=== PATIENT | male | born 1970 | race Caucasian/White ===

== ENCOUNTER 2022-08-14 10:03 | Inpatient (IN) | payer OTHER, SELFPAY ==
[2022-08-14] MEDS ORDERED: ONDANSETRON 4 MG/2 ML VIAL ONE ×2 (10:12→14:29)
[2022-08-14] MEDS ORDERED: MORPHINE 4 MG/ML SYR ONE (10:12)
[2022-08-14 10:37] LABS: Absolute Lymphocytes (CBC) 0.7 K/uL (0.7-4.9); Hematocrit 48.3 % (39.6-49.0); Lymphocytes % 2.4 % (15.3-44.8); MCV 83.3 fL (80-100); MPV 9.6 fL (7.6-11.3)
[2022-08-14 10:55] LABS: SARS-CoV-2 Antigen Rapid Res Negative (Negative)
[2022-08-14 11:08] LABS: Albumin 3.2 g/dL (3.4-5.0); Bilirubin Total 0.5 mg/dL (0.2-1.0); Potassium 5.6 mmol/L (3.5-5.1); Protein, Total 8.1 g/dL (6.4-8.2)
[2022-08-14 11:21] LABS: Blood Morphology Comment NOT SEEN (NOT SEEN); Dohle Bodies PRESENT; Platelet Estimate INCR; Platelets, Giant NOTED
[2022-08-14] MEDS ORDERED: NA CHLORIDE 0.9% 1,000 ML ONE (11:24)
--- NOTE | 2022-08-14 11:34 | RAD REPORT ---
EXAM DESCRIPTION: CT - Head Brain Wo Cont - 08/14/2022 11:25 am CLINICAL HISTORY: Headache, syncope COMPARISON: No comparisonsNo comparisons TECHNIQUE: Axial 5 mm thick images of the head were obtained without IV contrast. All CT scans are performed using dose optimization technique as appropriate and may include automated exposure control or mA/KV adjustment according to patient size. FINDINGS: No intracranial hemorrhage, mass, edema or shift of mid-line structures. No acute infarcti on changes seen. No abnormal extra-axial fluid collections. Ventricles are normal. Mastoid air cells are clear. Mild mucosal thickening seen in each maxillary sinus with small bilatera l air-fluid levels. There is left deviation the nasal septum. There is some minimal nodularity in the right nasal passage which could be a small polyp. No acute bony findings. IMPRESSION: No intracranial abnormality identifiable. Mild mucosal thickening and small air-fluid levels in each maxillary sinus. Findings could reflect a mild acute sinusitis and can be correlated with clinical presentation.
--- NOTE | 2022-08-14 11:40 | RAD REPORT ---
EXAM DESCRIPTION: CT - Abdomen Pelvis Wo Contrast - 08/14/2022 11:25 am CLINICAL HISTORY: abdominal pain COMPARISON: No comparisons TECHNIQUE: Axial [address] imaging of the abdomen and pelvis was performed without IV contrast. No IV contrast was given because of allergy, abnormal renal function, patient refusal or physician re quest. No oral contrast administered. All CT scans are performed using dose optimization technique as appropriate and may include automated exposure control or mA/KV adjustment according to patient size. FINDINGS: Minimal interstitial and patchy alveolar opacities are present in the left lung base. Righ t lung base is clear. No pleural effusions. No cardiomegaly or pericardial effusion. The liver, spleen and pancreas show no suspicious findings on non-contrast imaging. Gallbladder and b iliary tree are also without suspicious finding. No hydronephrosis or suspicious renal mass. No significant adrenal finding. Isodense renal masses an d pyelonephritis cannot be excluded in the absence of IV contrast. Mostly contracted urinary bladder shows no suspicious finding. Stomach is filled with fluid and air. No gastric wall thickening or mass. There is mild dilatation of the duodenum. Multiple dilated loops of jejunum are noted up to 4.4 cm in diameter. Dilation of smal l bowel continues to the jejunum and ileum junction. There is an 8 centimeter diameter left supraumbi lical hernia. The neck is 3 cm in diameter. The hernia contains a loop of small bowel. Distal loops o f small bowel are decompressed. Colon is decompressed. Herniated bowel loop shows mildly edematous wa lls. The herniated fat is edematous. No free air or pneumatosis. No abnormal free fluid collection. No mass or bulky lymphadenopathy. No suspicious bony findings. IMPRESSION: Small bowel obstruction secondary to a herniated loop of small bowel into an 8 centimete r diameter left supraumbilical hernia. Small bowel distal to the herniation decompressed along with decompressed colon. Herniated loop of sm all bowel at the jejunum and ileum junction shows mild edema. There is congestion and edema of the he rniated fat. There are patchy interstitial and alveolar opacities in the left lung base which could be a concurren t minimal infiltrate. Full assessment is limited is the absence of IV contrast.
[2022-08-14 11:46] LABS: Protime INR 0.98
[2022-08-14] MEDS ORDERED: NA CHLORIDE 0.9% 100 ML ONE (12:11)
[2022-08-14] MEDS ORDERED: PIPERACIL/TAZO 3.375 GM VIAL IV ONE (12:11)
--- NOTE | 2022-08-14 12:12 | ER ---
Nurse's Notes [facility] Name: Grady Magana Age: 52 yrs Sex: Male : 1970 Arrival Date: 08/14/2022 Time: 10:11 Bed 15 Private MD: Diagnosis: Incarcerated small bowel;Acute kidney failure, unspecified;Syncopal episode;Severe sepsis without septic shock;Hyponatremia Presentation: 08/14 10:00 Chief complaint: EMS states: patient fell in the kitchen and hit the back of his head, ko1 he was not conscious for 1-2 minutes. He has been having n/v over the past several days. Complains of abdominal pain, has an abdominal hernie. Coronavirus screen: At this time, the client does not indicate any symptoms associated with coronavirus-19. Ebola Screen: No symptoms or risks identified at this time. Initial Sepsis Screen: Does the patient meet any 2 criteria? No. Patient's initial sepsis screen is negative. Does the patient have a suspected source of infection? No. Patient's initial sepsis screen is negative. Risk Assessment: Do you want to hurt yourself or someone else? Patient reports no desire to harm self or others. Onset of symptoms was August 14, 2022. 10:00 Method Of Arrival: EMS: [facility] ko1 10:00 Acuity: LORY 2 ko1 Triage Assessment: 10:41 General: Appears in no apparent distress. uncomfortable, ill, Behavior is calm, ko1 cooperative, appropriate for age. Pain: Complains of pain in abdomen. EENT: No deficits noted. Neuro: Reports a syncopal episode. Cardiovascular: No deficits noted. Respiratory: No deficits noted. GI: No deficits noted. : No deficits noted. Derm: No deficits noted. Musculoskeletal: No deficits noted. Historical: - Allergies: 10:41 No Known Allergies; ko1 - Immunization history:: Adult Immunizations unknown. - Social history:: Smoking status: Patient denies any tobacco usage or history of. Screenin:36 [facility] ED Fall Risk Assessment (Adult) History of falling in the last 3 months, ko1 including since admission Yes- single mechanical fall (1 pt) Confusion or Disorientation No (0 pts) Intoxicated or Sedated No (0 pts) Impaired Gait No (0 pts) Mobility Assist Device Used No (0 pt) Altered Elimination No (0 pt) Score/Fall Risk Level 0 - 2 = Low Risk Oriented to surroundings, Maintained a safe environment, Educated pt \T\ family on fall prevention, incl call for assistance when getting out of bed, Assessed \T\ reinforced patient's understanding of fall precautions, Provided non-skid footwear, Hourly rounding (assess needs \T\ fall precautionary measures) done, Used ambulatory aids as needed (educated on \T\ assisted with), Used gait belt as appropriate. Abuse screen: Denies threats or abuse. Denies injuries from another. Nutritional screening: No deficits noted. Tuberculosis screening: No symptoms or risk factors identified. Assessment: 11:30 Reassessment: LIOR Yañez notified of critical lab values, K+, NA, Cl and creat. CODE ss SEPSIS called. 12:45 Reassessment: Bladder scanner device currently in use on 2nd floor, will perform 3 bladder scan once device is available. 12:58 :. eh3 Vital Signs: 10:36 BP 129 / 85; Pulse 68; Resp 16; Temp 97; Pulse Ox 100% ; Weight 102.06 kg; Height 6 ft. ko1 3 in. (190.50 cm); Pain 6/10; 11:00 BP 135 / 78; Pulse 70; Resp 16; Pulse Ox 99% ; ko1 11:15 BP 134 / 82; Pulse 72; Pulse Ox 99% ; ko1 11:45 BP 149 / 83; Pulse 69; Resp 16; Pulse Ox 100% on R/A; eh3 12:45 BP 139 / 80; Pulse 68; Resp 14; Pulse Ox 100% on R/A; eh3 10:36 Body Mass Index 28.12 (102.06 kg, 190.50 cm) ko1 ED Course: 10:11 Patient arrived in ED. ll1 10:11 Otilio Blancas NP is PHCP. pm1 10:11 Robbie Del Angel DO is Attending Physician. pm1 10:15 Fely Sinclair, PRAMOD is Primary Nurse. ko1 10:28 SARS RAPID Sent. ko1 10:28 Lactate w/ 2H reflex if indic. Sent. ko1 10:28 CBC with Diff Sent. ko1 10:28 CMP Sent. ko1 10:28 Lipase Sent. ko1 10:36 No provider procedures requiring assistance completed. Maintain EMS IV. Dressing ko1 intact. Good blood return noted. Site clean \T\ dry. Gauge \T\ site: 20g left AC. 10:36 Patient has correct armband on for positive identification. Bed in low position. Call ko1 light in reach. Side rails up X2. vehicle inspector on. Pulse ox on. NIBP on. Warm blanket given. 10:41 Triage completed. ko1 10:41 Arm band placed on right wrist. Patient placed in the treatment room, on cardiac ko1 monitor, on pulse oximetry, Patient notified of wait time Emesis basin given. 11:27 CT Head Brain wo Cont In Process Unspecified. EDMS 11:27 Abdomen In Process Unspecified. EDMS 12:03 Brad Wright MD is Hospitalizing Provider. pm1 12:58 Bladder scan completed. 27 mL. eh3 Administered Medications: 12:12 Discontinued: NS 0.9% 1000 ml IV at 100 ml/hr once pm1 10:15 Drug: Zofran (Ondansetron) 4 mg Route: IVP; Site: left antecubital; ko1 10:16 Drug: morphine 4 mg Route: IVP; Infused Over: 4 mins; Site: left antecubital; ko1 10:16 Drug: NS 0.9% 1000 ml Route: IV; Rate: 1000 ml; Site: left antecubital; ko1 11:20 Not Given (Physician Discretion): NS 0.9% 1000 ml IV at 125 ml/hr continuous pm1 11:34 Drug: NS 0.9% 1000 ml Route: IV; Rate: 100 ml/hr; Site: left antecubital; ko1 12:30 Drug: Zosyn (piperacillin-tazobactam) 3.375 grams Route: IVPB; Infused Over: 60 mins; eh3 Site: left antecubital; 12:30 Drug: NS 0.45 % 1000 ml Route: IV; Rate: 100 ml/hr; Site: left antecubital; eh3 Outcome: 12:12 Decision to Hospitalize by Provider. pm1 13:34 Patient left the ED. eh3 Signatures: Dispatcher [employer] EDMS Soledad Bustillos RN RN ss Otilio Blancas, LIOR LIGHTING ADVISER pm1 Guerrero Crowley RN RN 1 Leonila Borden RN RN eh3 Yahir, Fely, RN RN ko1
--- NOTE | 2022-08-14 12:12 | EDPHYS ---
Physician Documentation [facility] Name: Grady Magana Age: 52 yrs Sex: Male : 1970 Arrival Date: 08/14/2022 Time: 10:11 Bed 15 Private MD: ED Physician Robbie Del Angel HPI: 08/14 10:14 This 52 yrs old Male presents to ER via Unassigned with complaints of Abdominal pain. pm1 10:14 The patient presents with abdominal pain in the periumbilical area. Onset: The pm1 symptoms/episode began/occurred 4 day(s) ago. The symptoms do not radiate. Associated signs and symptoms: Pertinent positives: nausea and vomiting, Pertinent negatives: diarrhea, fever. The symptoms are described as achy, constant. Modifying factors: The symptoms are alleviated by nothing, the symptoms are aggravated by nothing. Severity of pain: in the emergency department the pain is actually worse. patient reports history of hernia to the area that he is hurting that has been present for many years. Patient reports the hernia got hard about 4 days ago. Patient with nausea and vomiting since. Patient with syncopal episode today when he got up. Patient fell backwards and hit his head. Positive for LOC. On EMS arrival noted systolic blood pressure 80s. Patient given IV fluids, approximately 600 mL infused patient with blood pressure within normal limits on arrival. The patient has not recently seen a physician. Historical: - Allergies: 10:41 No Known Allergies; ko1 - Immunization history:: Adult Immunizations unknown. - Social history:: Smoking status: Patient denies any tobacco usage or history of. ROS: 10:15 Eyes: Negative for injury, pain, redness, and discharge, ENT: Negative for injury, pm1 pain, and discharge, Neck: Negative for injury, pain, and swelling, Cardiovascular: Negative for chest pain, palpitations, and edema, Respiratory: Negative for shortness of breath, cough, wheezing, and pleuritic chest pain. 10:15 Back: Negative for injury and pain, MS/Extremity: Negative for injury and deformity, Skin: Negative for injury, rash. Positive for skin discoloration to abdomen onset yesterday Neuro: Negative for headache, weakness, numbness, tingling, and seizure. 10:15 Constitutional: Positive for poor PO intake, Negative for fever. 10:15 Abdomen/GI: Positive for abdominal pain, nausea and vomiting, of the mid upper abdomen, Negative for flatulence for 5 days. 10:15 All other systems are negative. Exam: 10:15 Head/Face: Normocephalic, atraumatic. pm1 10:15 Constitutional: The patient appears in no acute distress, alert, awake, comfortable, non-diaphoretic, non-toxic, well developed, well hydrated, well groomed, well nourished, in obvious pain. 10:15 Eyes: Exam is negative for acute changes, Periorbital structures: no acute changes, Extraocular movements: no acute changes, Conjunctiva: no acute changes, no injection. 10:15 ENT: Exam is negative for acute changes, Mouth: no acute changes, Lips: dry, Oral mucosa: normal, pink and intact, dry. Vital Signs: 10:36 BP 129 / 85; Pulse 68; Resp 16; Temp 97; Pulse Ox 100% ; Weight 102.06 kg; Height 6 ft. ko1 3 in. (190.50 cm); Pain 6/10; 11:00 BP 135 / 78; Pulse 70; Resp 16; Pulse Ox 99% ; ko1 11:15 BP 134 / 82; Pulse 72; Pulse Ox 99% ; ko1 11:45 BP 149 / 83; Pulse 69; Resp 16; Pulse Ox 100% on R/A; eh3 12:45 BP 139 / 80; Pulse 68; Resp 14; Pulse Ox 100% on R/A; eh3 10:36 Body Mass Index 28.12 (102.06 kg, 190.50 cm) ko1 MDM: 10:11 Patient medically screened. pm1 10:56 Differential diagnosis: bowel obstruction, Incarcerated hernia, cellulitis, abscess. pm1 11:51 ED course: Severe sepsis without shock: A) Infection source: Incarcerated hernia - pm1 small bowel. B) WBC 26, C) Lactate 2.4, Cr 7.79. 11:51 Counseling: I had a detailed discussion with the patient and/or guardian regarding: the pm1 historical points, exam findings, and any diagnostic results supporting the discharge/admit diagnosis, lab results, radiology results, the need for further work-up and treatment in the hospital. 11:58 Management of patient was discussed with the following: Hot Dip Tinning Supervisor: Dr Alvarado. Saw pm1 the patient in the ER and will take the patient to surgery soon. Admit to the hospitalist. anthony appropriate for treatment. 12:05 Consideration of Admission/Observation Patient was admitted to the ICU. pm1 12:07 Management of patient was discussed with the following: Hospitalist: Dr Wright. Saw pm1 patient in the ER and requested consultation with Dr Simmons. 12:12 Data reviewed: vital signs. pm1 12:13 Management of patient was discussed with the following: Hot Dip Tinning Supervisor: Iris HOLLAND. 1/2 NS pm1 at 100 per hour, repeat BMP q4h. Will see patient today. 12:36 Management of patient was discussed with the following: Derik LAURENT for hospitalist, pm1 discussed management plan from Dr Simmons - 1/2 LINDSEY at 100 ml/hr and BMP q4hr. 08/14 10:12 Order name: CBC with Diff; Complete Time: 11:23 pm1 08/14 10:12 Order name: CMP; Complete Time: 11:15 pm1 08/14 10:12 Order name: Lipase; Complete Time: 11:15 pm1 08/14 10:12 Order name: Lactate w/ 2H reflex if indic.; Complete Time: 11:15 pm1 08/14 10:13 Order name: SARS RAPID; Complete Time: 10:56 pm1 08/14 10:47 Order name: Manual Differential; Complete Time: 11:23 EDMS 08/14 10:18 Order name: CT Head Brain wo Cont; Complete Time: 11:46 pm1 08/14 11:20 Order name: Blood Culture Adult (2) pm1 08/14 11:20 Order name: Protime (+inr); Complete Time: 11:46 pm08/14 11:20 Order name: Ptt, Activated; Complete Time: 11:46 pm1 08/14 11:24 Order name: CMP pm1 08/14 13:25 Order name: BMP eh3 08/14 10:12 Order name: IV Saline Lock; Complete Time: 10:16 pm08/14 10:12 Order name: Labs collected and sent; Complete Time: 10:28 pm1 08/14 11:10 Order name: NPO; Complete Time: 11:13 pm1 08/14 11:20 Order name: EKG; Complete Time: 11:21 pm1 08/14 11:20 Order name: Cardiac monitoring; Complete Time: 11:34 pm1 08/14 11:20 Order name: EKG - Nurse/Tech; Complete Time: 12:35 pm1 08/14 11:20 Order name: O2 Per Protocol; Complete Time: 11:24 pm1 08/14 11:20 Order name: O2 Sat Monitoring; Complete Time: 11:24 pm1 08/14 11:23 Order name: Abdomen ; Complete Time: 11:46 EDMS 08/14 11:51 Order name: Labs - recollect needed: chemistry green top; Complete Time: 11:58 em1 08/14 12:41 Order name: Bladder Scanner; Complete Time: 13:00 ss EC:24 Rate is 69 beats/min. Rhythm is regular, Normal Sinus Rhythm with incomplete bundle pm1 branch block. QRS Vista is Normal. RI interval is normal. QRS interval is normal. QT interval is normal. No Q waves. T waves are Normal. No ST changes noted. Clinical impression: Normal sinus rhythm, incomplete bundle branch block, borderline ECG. Administered Medications: 12:12 Discontinued: NS 0.9% 1000 ml IV at 100 ml/hr once pm1 10:15 Drug: Zofran (Ondansetron) 4 mg Route: IVP; Site: left antecubital; ko1 10:16 Drug: morphine 4 mg Route: IVP; Infused Over: 4 mins; Site: left antecubital; ko1 10:16 Drug: NS 0.9% 1000 ml Route: IV; Rate: 1000 ml; Site: left antecubital; ko1 11:20 Not Given (Physician Discretion): NS 0.9% 1000 ml IV at 125 ml/hr continuous pm1 11:34 Drug: NS 0.9% 1000 ml Route: IV; Rate: 100 ml/hr; Site: left antecubital; ko1 12:30 Drug: Zosyn (piperacillin-tazobactam) 3.375 grams Route: IVPB; Infused Over: 60 mins; eh3 Site: left antecubital; 12:30 Drug: NS 0.45 % 1000 ml Route: IV; Rate: 100 ml/hr; Site: left antecubital; eh3 Disposition: 10:17 Co-signature as Attending Physician, Robbie Del Angel DO I reviewed the patient's care ms3 provided by Advanced Practice Provider \T\ agree w/ the diagnosis \T\ care plan. I personally saw the pt \T\ performed a substantive portion of the visit, incldng all aspects of the (History/Exam/Medical Decision Making). PA/LEDGER POSTER's history reviewed, patient interviewed, and examined. HPI: 52-year-old male presents via [place], EMS status post syncopal episode. Patient notes he has had vomiting with ventral hernia abdominal pain for the last few days. My personal exam of patient reveals: On exam patient is alert and oriented x4, no apparent distress, nontoxic-appearing. Heart rate and rhythm are regular without murmurs rubs or gallops. Lungs are clear to auscultation bilaterally. Abdomen is tender over ventral hernia, with overlying erythema. Hernia is not reducible. Disposition Summary: 08/14/22 12:12 Hospitalization Ordered Hospitalization Status: Inpatient Admission pm1 Provider: Brad Wright pm1 Location: Intensive Care Unit pm1 Problem: new pm1 Symptoms: have improved pm1 Bed/Room Type: Standard pm1 Room Assignment: pm1 Condition: Critical(08/14/22 12:17) pm1 Diagnosis - Incarcerated small bowel pm1 - Acute kidney failure, unspecified pm1 - Syncopal episode pm1 - Severe sepsis without septic shock pm1 - Hyponatremia pm1 Forms: - Medication Reconciliation Form pm1 - SBAR form pm1 Critical care time excluding procedures: 12:20 Critical care time: Bedside Care: 15 minutes, Consultation: 15 minutes, Family pm1 Intervention: 10 minutes. Total time: 40 minutes Signatures: Dispatcher [employer] EDMS Marques Alavrado em1 Soledad Bustillos RN RN ss Otilio Blancas NP LEDGER POSTER pm1 Robbie Del Angel, DO ms3 Leonila Borden, PRAMOD BENAVIDEZ eh3 Fely Sinclair, RN RN ko1 Corrections: (The following items were deleted from the chart) 10:27 10:21 Head Brain Wo Cont ordered. EDMS EDMS 10:31 10:15 Back: Negative for injury and pain, MS/Extremity: Negative for injury and pm1 deformity, Skin: Negative for injury, rash, and discoloration, Neuro: Negative for headache, weakness, numbness, tingling, and seizure, pm1 11:23 10:13 Abdomen Pelvis W Con+CT.RAD.BRZ ordered. EDMS EDMS 12: 12:12 Guarded pm1 pm1 12 12:12 Dehydration pm1 pm1
[2022-08-14] MEDS ORDERED: NACHLORIDE 0.45% 1,000 ML IV ONE (12:18)
[2022-08-14] MEDS ORDERED: VECURONIUM 10 MG/VIAL IV ONE ×2 (12:31→13:01)
[2022-08-14] MEDS ORDERED: NS 0.9% VIAL 10 ML ONE (12:31)
[2022-08-14] MEDS ORDERED: MIDAZOLAM HCL 2 MG/2 ML INJ ONE (12:31)
[2022-08-14] MEDS ORDERED: LIDOCAINE 2% MPF 5 ML VIAL ONE (12:31)
[2022-08-14] MEDS ORDERED: propofoL 200 MG/20 ML VIAL IV ONE (12:31)
[2022-08-14] MEDS ORDERED: FENTANYL CITR 250 MCG/5 ML ONE (12:31)
[2022-08-14] MEDS ORDERED: SUCCINYLCHOLINE 20 MG/ML (10 ML) IV ONE ×2 (13:01→13:50)
--- NOTE | 2022-08-14 13:13 | P.HP ---
Certification for Inpatient Patient admitted to: Inpatient With expected LOS: >2 Midnights Patient will require the following post-hospital care: None Practitioner: I am a practitioner with admitting privileges, knowledge of patient current condition, hospital course, and medical plan of care. Services: Services provided to patient in accordance with Admission requirements found in Title 42 Section 412.3 of the Code of Federal Regulations <Eldon Day - Last Filed: 08/14/22 19:47> Patient History Date of Service: 08/14/22 Primary Care Provider: None Reason for admission: Incarcerated bowel, hyponatremia History of Present Illness: This is a 52-year-old male with no prior medical history who presented to the emergency room with complaints of abdominal pain. Patient stated that his pain started 4 to 5 days ago with complaints of nausea, vomiting, dizziness, and headaches. Patient said that he has not been able to tolerate any of his meals. Pain is located in the umbilical area with no radiating symptoms. Patient also reported a fall after getting up to get some ice. No injuries were sustatined. Per EMS, patient was hypotensive with systolic blood pressures in the 80s. Patient was given 600 ml of IV fluids and blood pressure was normalized. Patient also said that he believes that he vomited feces at times. On physical exam, patient does present with a ventral hernia, he reports having a hernia for more than a year now. In the ER, patient had a white count of 26. Platelets of 439. Sodium 103, Potassium of 5.6. Creatinine of 7.79 and a lactic of 7.6. Patient will be admitted under the care of Dr. Wright. Surgery was consulted patient, will be going to the OR. Nephrology will be consulted for the management of the hyponatremia. <Eldon Day - Last Filed: 08/14/22 19:47> Date of Service: 08/15/22 <Brad Wright - Last Filed: 08/15/22 19:56> Allergies No Known Allergies Allergy (Unverified 08/14/22 12:57) Home Medications: NK [No Home Meds] 08/14/22 Review of Systems General: Weakness Respiratory: SOB with Excertion Gastrointestinal: Nausea, Vomiting, Abdominal Pain Neurological: Weakness <Eldon Day - Last Filed: 08/14/22 19:47> Physical Examination - Vital Signs Temperature: 97 F Blood Pressure: 129/85 Pulse: 69 Respirations: 18 Pulse Ox (%): 100 - Physical Exam General: Oriented x3, Moderate distress HEENT: Atraumatic, Normocephalic, PERRLA Neck: Supple, 2+ carotid pulse no bruit Respiratory: Diminished Cardiovascular: No edema, Normal pulses, Regular rate/rhythm Capillary refill: <2 Seconds Gastrointestinal: Hypoactive, Other (hernia), Tenderness Musculoskeletal: No clubbing, No swelling Integumentary: No rashes Neurological: Sensation intact Lymphatics: No axilla or inguinal lymphadenopathy - Studies Laboratory Data (last 24 hrs) 08/14/22 11:33: PT 10.8, INR 0.98, APTT 26.2 08/14/22 10:23: Sodium 103 L*, Potassium 5.6 H*, BUN 253 H, Creatinine 7.79 H*, Glucose 132 H, Total Bilirubin 0.5, AST 34, ALT 28, Alkaline Phosphatase 107, Lipase 596 H 08/14/22 10:23: WBC 26.70 H*, Hgb 17.2, Hct 48.3, Plt Count 439 H <Eldon Day - Last Filed: 08/14/22 19:47> - Studies Laboratory Data (last 24 hrs) 08/14/22 11:33: Sodium Cancelled, Potassium Cancelled, BUN Cancelled, Creatinine Cancelled, Glucose Cancelled, Total Bilirubin Cancelled, AST Cancelled, ALT Cancelled, Alkaline Phosphatase Cancelled <Brad Wright - Last Filed: 08/15/22 19:56> Assessment and Plan - Plan Assessment Severe sepsis without septic shock Incarcerated small bowel LYN Syncopal episode Hyponatremia Plan Nephrology consulted recommendation appreciated Surgery consulted Continue half-normal saline at 100 cc/hr BMP every 4 Trend lactic, second lactic was delayed because patient was in the emergency surgery Continue IV antibiotics Keep patient n.p.o. DVT PPX- SCDs Code status- Full code Discharge Plan: Home Plan to discharge in: Greater than 2 days - Advance Directives Does patient have a Living Will: No Does patient have a Durable POA for Healthcare: No - Code Status/Comfort Care Code Status Assessed: Yes (Full code) Critical Care: Yes Time Spent Managing Pts Care (In Minutes): 70 <Eldon Day - Last Filed: 08/14/22 19:47> Physician Review: Patient Assessed, Agree with Above Assessment and Plan <Brad Wright - Last Filed: 08/15/22 19:56>
[2022-08-14] MEDS ORDERED: Ringers Lactate 1,000 ML IV ONE (13:40)
--- NOTE | 2022-08-14 13:56 | P.BOP ---
Preoperative diagnosis: 8 cm incarcerated ventral supraumbilical hernia, peritonitis, renal inssuf. Postoperative diagnosis: peritonitis, small bowel obstruction Primary procedure: Emergent exploratory laparotomy, small bowel resection with anastomosis Secondary procedure: lysis of adhesion, repair of ventral strangulated hernia (8cm), Estimated blood loss: <50cc Specimen: small bowel Findings: see dicta Anesthesia: General Complications: None Transferred to: ICU Condition: Critical
[2022-08-14] MEDS ORDERED: NACHLORIDE 0.45% 1,000 ML IV SCH ×2 (14:00→22:47)
[2022-08-14 14:24] LABS: Potassium 5.8 mmol/L (3.5-5.1)
--- NOTE | 2022-08-14 14:25 | CON ---
Date of Consultation: 08/14/2022 Diagnosis: Abdominal pain, incarcerated, possible strangulated ventral hernia. History Of Present Illness: This is a case of a 52-year-old patient who has been 4 days having abdom inal pain, severe. He did not want to come to the ER until today, could not take it anymore and this was associated with nausea, vomiting, even a syncopal episode. EMS was called. Systolic blood pres sure of 80s, found to be acidotic. I asked the patient, he remembered what happened. He stated no L OC. Allergies: NONE. Surgeries: None. Family History: Noncontributory. Social History: No smoking. No ETOH. Review of Systems: Patient did have nausea, vomiting, there is questionable LOC, although he say no, but there is docume ntation of yes. Right now, he is oriented x3. He has this abdominal pain for 4 days just above the umbilical region. There is a bulging area redness on the skin. Physical Examination: General: Patient is awake, alert, oriented x3. HEENT: Pupils are equal and reactive. Anicteric. Neck: Supple. Chest: Clear. Abdomen: Distended and there is peritonitis. There is a mass effect in the ventral periumbilical re gion consistent with the findings of a possible strangulated umbilical ventral hernia. Rectal: Deferred. Extremities: Good capillary refill. Laboratory Data: Blood work shows WBC count of 26.7 with the hemoglobin of 17.2. INR is 0.98. Init ial blood work also shows sodium of 103, potassium 5.6, bicarb is 18, creatinine 7.79. Lipase 596. Glucose 132. Head CT interpreted by Dr. Ritter as no intracranial abnormalities. CAT scan of the a bdomen and pelvis interpreted by Dr. Ritter as small bowel obstruction with a hernia loop of small b owel into an 8 cm diameter ventral supraumbilical hernia. There is evidence of intestinal swelling, congestion. Assessment: It is somebody who came here with peritonitis, acidotic, leukocytosis, renal insufficien cy with an incarcerated, possible strangulated bowel. Happened several days ago to the point right n ow that he is all acidotic with electrolyte imbalance. At the same time, we have this emergency pres ent most likely a compromised bowel that may be contributing to all these symptoms. From the surgica l standpoint, we are going to take him emergently to the operating room for laparotomy, possible rese ction, possible ostomy with benefits, alternatives, and risks explained to him and the family member, which include, but not limited to, infection, bleeding, damage to adjacent structures, anesthesia co mplication, NV, and even . The OR was emergently called. SUKHI/LIZA Voice ID: [id number] Report ID: [id number]
[2022-08-14] MEDS ORDERED: KETOROLAC 30 MG/ML INJ ONE (14:28)
[2022-08-14] MEDS ORDERED: GLYCOPYRROLATE 0.2 MG/ML SYR ONE ×2 (14:28→14:36)
[2022-08-14] MEDS ORDERED: dexAMETHasone 10 MG/ML VIAL ONE (14:28)
[2022-08-14] MEDS ORDERED: NEOSTIGMINE 1 MG/ML -5 ML ONE (14:29)
[2022-08-14] MEDS ORDERED: SUGAMMADEX SODIUM 200 MG/2 ML VIAL IV ONE (15:05)
--- NOTE | 2022-08-14 15:44 | RAD REPORT ---
EXAM DESCRIPTION: RAD - Abdomen 1 View (KUB) - 08/14/2022 3:36 pm CLINICAL HISTORY: Placement of NGT/OGT. Post Insertion. Pain COMPARISON: No comparisons FINDINGS: Enteric tube is probably in the stomach but at the edge of the field of view.
[2022-08-14] MEDS ORDERED: FENTANYL CITR 100 MCG/2 ML ONE (15:51)
[2022-08-14] MEDS: PIPER TAZO 3.375 GM in NA CHLORIDE 0.9% 100 ML IV SCH (16:30)
--- NOTE | 2022-08-14 16:49 | OP ---
Date of Procedure: 08/14/2022 Surgeon: Sagar Alvarado MD Preoperative Diagnoses: Incarcerated strangulated ventral supraumbilical hernia, peritonitis, renal insufficiency, acidosis, leukocytosis, small bowel obstruction. Postoperative Diagnoses: Incarcerated strangulated ventral supraumbilical hernia, peritonitis, renal insufficiency, acidosis, leukocytosis, small bowel obstruction. Procedures: Emergent exploratory laparotomy, small bowel resection with anastomosis, repair of ventr al strangulated hernia about 8 cm, lysis of adhesions. Estimated Blood Loss: Less than 50 cc. Specimen: Small bowel hernia sac. Findings: The patient has strangulated small bowel causing a bowel obstruction and this bowel needs to be resected. Complications: None. Indication: This is the case of a 52-year-old patient, found in shock, hypovolemic, and syncope at h ome, when he was brought to the ER found to have a small bowel obstruction with a strangulated ventra l hernia. He was also found hyponatremic, hypovolemic, acidotic, renal insufficiency. The patient w as emergently resuscitated and then fully explained to him and the family the need for emergent lapar otomy possible bowel resection, possible ostomy with benefits, alternatives, and risks including, but not limited to infection, bleeding, damage to adjacent structures, anesthesia complication, recurren ce, HI and even . He also understands this may not relieve any symptoms. He might need more th an one surgical intervention. He understood, signed a consent. Procedure In Detail: The patient was brought to the operating room, placed in supine position. Anes thesia was done without complication. Abdominal area was prepped and draped in the usual sterile fas hion. At that moment, I proceeded to do a midline incision. Incision was carried down to fascia. W e went just above the hernia, so we can contain that small bowel present in that hernia. I did a for mal laparotomy, opened hernia sac, found to have a strangulated bowel with ischemia. We obtained pro ximal and distal control. At that moment, I proceeded then to transect the proximal and distal with an area that we believe is viable. I transected the mesenteric with the help of LigaSure. The ends of this small bowel seems to be viable, so we put them together, secured the end of anasto mosis with silk, made 2 enterotomies, put a KATHRYN 60 in between created anastomosis and then closed the enterotomies with the help of TA-60. The area was irrigated. The mesentery was closed with the hel p of 0 chromic. We ran the small bowel, seems to be now opening the area of collapse and seems to be an outstanding. There was good flow of the anastomosis in between with no bleeding. Profuse irriga tion of the abdomen was done. Transverse ascending and descending colon feels no masses in the liver , no mass in stomach. NG tube in place. Once again, we checked the area of anastomosis. The bowel seemed to be viable and functional with fluid passing through. At that moment, we irrigated the area once again and then proceeded to close the fascia with #2 nylon, irrigated subcutaneous tissue, clos ed the subcutaneous tissue with 3-0 chromic and then basically closed the skin with pura. Sponge count, instrument counts correct. The patient tolerated the procedure well. The patient was sent in critical condition to the ICU. This patient comes with a history of acidosis probably ga ngrenous for few days. Hopefully, they can resuscitate him and bring him and medically optimize him after this great insult. HM/MODL Voice ID: [id number] Report ID: [id number]
[2022-08-14 17:22] LABS: Magnesium 3.2 mg/dL (1.6-2.4); Potassium 5.2 mmol/L (3.5-5.1)
[2022-08-14] MEDS: MORPHINE 4 MG/ML SYR IV PRN ×2 (17:36→19:32)
[2022-08-14 17:39] LABS: Phosphorus 11.4 mg/dL (2.5-4.9)
[2022-08-14] MEDS ORDERED: D5W 1,000 ML IV SCH ×2 (18:05→22:49)
[2022-08-14] MEDS: ONDANSETRON 4 MG/2 ML VIAL IV PRN (19:32)
[2022-08-14] MEDS ORDERED: INFLUENZA VACCINE (for 6+ mo) 0.5 ML DOSE IMVAC ONE (20:00)
[2022-08-14 21:35] LABS: Albumin 2.7 g/dL (3.4-5.0); Bilirubin Total 0.6 mg/dL (0.2-1.0); Potassium 5.2 mmol/L (3.5-5.1); Protein, Total 6.6 g/dL (6.4-8.2)
[2022-08-14] MEDS ORDERED: DESMOPRESSIN 4 MCG/ML AMP ONE (21:56)
[2022-08-14] MEDS ORDERED: DESMOPRESSIN 4 MCG/ML AMP SQ ONE (22:00)
--- NOTE | 2022-08-14 22:29 | P.CNS ---
Date of Consult: 08/14/22 Reason for Consult: Hyponatremia/ LYN Requesting Physician: Brad Wright Primary Care Provider: None Chief Complaint: Incarcerated bowel, hyponatremia History of Present Illness: This is a 52-year-old male with no prior medical history who presented to the emergency room with complaints of abdominal pain. Patient stated that his pain started 4 to 5 days ago with complaints of nausea, vomiting, dizziness, and headaches. Patient said that he has not been able to tolerate any of his meals. Pain is located in the umbilical area with no radiating symptoms. Patient also reported a fall after getting up to get some ice. No injuries were sustatined. Per EMS, patient was hypotensive with systolic blood pressures in the 80s. Patient was given 600 ml of IV fluids and blood pressure was normalized. Patient also said that he believes that he vomited feces at times. On physical exam, patient does present with a ventral hernia, he reports having a hernia for more than a year now. In the ER, patient had a white count of 26. Platelets of 439. Sodium 103, Potassium of 5.6. Creatinine of 7.79 and a lactic of 7.6. Patient will be admitted under the care of Dr. Wright. Surgery was consulted patient, will be going to the OR. Nephrology will be consulted for the management of the hyponatremia. [facility] 10:14 This 52 yrs old Male presents to ER via Unassigned with complaints of Abdominal pain. pm1 10:14 The patient presents with abdominal pain in the periumbilical area. Onset: The pm1 symptoms/episode began/occurred 4 day(s) ago. The symptoms do not radiate. Associated signs and symptoms: Pertinent positives: nausea and vomiting, Pertinent negatives: diarrhea, fever. The symptoms are described as achy, constant. Modifying factors: The symptoms are alleviated by nothing, the symptoms are aggravated by nothing. Severity of pain: in the emergency department the pain is actually worse. patient reports history of hernia to the area that he is hurting that has been present for many years. Patient reports the hernia got hard about 4 days ago. Patient with nausea and vomiting since. Patient with syncopal episode today when he got up. Patient fell backwards and hit his head. Positive for LOC. On EMS arrival noted systolic blood pressure 80s. Patient given IV fluids, approximately 600 mL infused patient with blood pressure within normal limits on arrival. The patient has not recently seen a physician. Allergies No Known Allergies Allergy (Unverified 08/14/22 12:57) Home medications list reviewed: Yes Home Medications: NK [No Home Meds] 08/14/22 - Social History Place of Residence: Home Review of Systems 10-point ROS is otherwise unremarkable General: Weakness, Malaise Gastrointestinal: Abdominal Pain Neurological: Weakness Physical Examination Temp Pulse Resp BP Pulse Ox 97 F 70 16 135/75 96 08/14/22 20:04 08/14/22 21:00 08/14/22 21:00 08/14/22 21:00 08/14/22 21:00 General: Oriented x3, Cooperative HEENT: Atraumatic Neck: Supple Respiratory: Normal air movement Cardiovascular: No edema, Regular rate/rhythm Gastrointestinal: Tenderness Musculoskeletal: No clubbing, No contractures Integumentary: No rashes, No cyanosis Neurological: Normal speech Laboratory Data (last 24 hrs) 08/14/22 11:33: Sodium Cancelled, Potassium Cancelled, BUN Cancelled, Creatinine Cancelled, Glucose Cancelled, Total Bilirubin Cancelled, AST Cancelled, ALT Cancelled, Alkaline Phosphatase Cancelled 08/14/22 11:33: PT 10.8, INR 0.98, APTT 26.2 08/14/22 10:23: Sodium 103 L*, Potassium 5.6 H*, BUN 253 H, Creatinine 7.79 H*, Glucose 132 H, Total Bilirubin 0.5, AST 34, ALT 28, Alkaline Phosphatase 107, Lipase 596 H 08/14/22 10:23: WBC 26.70 H*, Hgb 17.2, Hct 48.3, Plt Count 439 H Imagings Data: [facility] EXAM DESCRIPTION: CT - Abdomen Pelvis Wo Contrast - 08/14/2022 11:25 am CLINICAL HISTORY: abdominal pain COMPARISON: No comparisons TECHNIQUE: Axial [address] imaging of the abdomen and pelvis was performed without IV contrast. No IV contrast was given because of allergy, abnormal renal function, patient refusal or physician request. No oral contrast administered. All CT scans are performed using dose optimization technique as appropriate and may include automated exposure control or mA/KV adjustment according to patient size. FINDINGS: Minimal interstitial and patchy alveolar opacities are present in the left lung base. Right lung base is clear. No pleural effusions. No cardiomegaly or pericardial effusion. The liver, spleen and pancreas show no suspicious findings on non-contrast imaging. Gallbladder and biliary tree are also without suspicious finding. No hydronephrosis or suspicious renal mass. No significant adrenal finding. Isodense renal masses and pyelonephritis cannot be excluded in the absence of IV contrast. Mostly contracted urinary bladder shows no suspicious finding. Stomach is filled with fluid and air. No gastric wall thickening or mass. There is mild dilatation of the duodenum. Multiple dilated loops of jejunum are noted up to 4.4 cm in diameter. Dilation of small bowel continues to the jejunum and ileum junction. There is an 8 centimeter diameter left supraumbilical hernia. The neck is 3 cm in diameter. The hernia contains a loop of small bowel. Distal loops of small bowel are decompressed. Colon is decompressed. Herniated bowel loop shows mildly edematous martel. The herniated fat is edematous. No free air or pneumatosis. No abnormal free fluid collection. No mass or bulky lymphadenopathy. No suspicious bony findings. IMPRESSION: Small bowel obstruction secondary to a herniated loop of small bowel into an 8 centimeter diameter left supraumbilical hernia. Small bowel distal to the herniation decompressed along with decompressed colon. Herniated loop of small bowel at the jejunum and ileum junction shows mild edema. There is congestion and edema of the herniated fat. There are patchy interstitial and alveolar opacities in the left lung base which could be a concurrent minimal infiltrate. Conclusions/Impression: LYN in the setting of Sepsis/ Hypovolemia -No NSAIDs -Continue IVF Hypovolemic Hyponatremia of unclear duration -IVF as ordered -BMP q4h -DDAVP X1 dose Hyperkalemia -NPO -Continue IVF Hypocalcemia HyperPO4 -NPO -Replete calcium prn Hypoalbuminemia in the setting of moderate malnutrition Debility/ Weakness -Advance nutrition as indicated Sepsis/ Septic Shock Incarcerated Hernia sp bowel resection -Continue abx -Follow up with surgery Case reviewed with Dr. Wright Thank you kindly for the consultation Critical Care: Yes (>30min)
[2022-08-15] MEDS: D5W 1,000 ML IV SCH ×2 (00:22→13:53)
[2022-08-15] MEDS: PIPER TAZO 3.375 GM in NA CHLORIDE 0.9% 100 ML IV SCH ×3 (00:22→17:24)
[2022-08-15 01:38] LABS: Potassium 4.9 mmol/L (3.5-5.1)
[2022-08-15] MEDS: MORPHINE 4 MG/ML SYR IV PRN ×2 (04:32→20:02)
[2022-08-15 05:16] LABS: Absolute Lymphocytes (CBC) 0.1 K/uL (0.7-4.9); Hematocrit 42.9 % (39.6-49.0); Lymphocytes % 0.6 % (15.3-44.8); MCV 84.3 fL (80-100); MPV 9.5 fL (7.6-11.3)
[2022-08-15 05:34] LABS: Uric Acid 14.7 mg/dL (3.5-7.2)
[2022-08-15 05:36] LABS: Specific Gravity 1.014 (1.005-1.030); Urine Bacteria <20 /HPF (<20); Urine Bilirubin NEGATIVE (Negative); Urine Blood 1+ (Negative); Urine Clarity Turbid (Clear); Urine Color Light-Yellow (Yellow); Urine Glucose 1+ (Negative); Urine Protein TRACE (Negative); Urine Urobilinogen Normal (Normal)
[2022-08-15 05:37] LABS: Calcium Oxalate Crystals- Ur Few /HPF (None Seen); Urine Mucus Slight /HPF (None Seen); Urine WBC Clump Occasional /HPF (None Seen)
[2022-08-15 05:40] LABS: UR SODIUM 24 mmol/L (27-287)
[2022-08-15 05:41] LABS: UR CL RANDOM < 12 mmol/L (25-40)
[2022-08-15 06:12] LABS: Potassium 4.6 mmol/L (3.5-5.1)
[2022-08-15 07:06] LABS: Hepatitis B Core Ab, Total Nonreactive (Nonreactive); Hepatitis B surface AG Interp. Nonreactive (Nonreactive); Hepatitis C Virus Ab Nonreactive (Nonreactive)
[2022-08-15 07:07] LABS: Hepatitis B Surface Ab - Quant < 3.10 mIU/mL (<8.0)
[2022-08-15] MEDS: MUPIROCIN 2% OINT 22GM TUBE TOP SCH ×2 (08:28→22:38)
[2022-08-15 09:11] LABS: Potassium 4.4 mmol/L (3.5-5.1)
[2022-08-15 12:35] LABS: Potassium 4.3 mmol/L (3.5-5.1)
--- NOTE | 2022-08-15 16:31 | PN ---
Date of Progress Note: 08/15/2022 Subjective: Status post emergent laparotomy with bowel resection, repair of a strangulated hernia, a cidosis, renal insufficiency, hypovolemia. The patient is doing better. Objective: General: He is awake and alert, no distress. Oriented x3. Chest: Clear. Abdomen: Intact surgical site. Extremities: Good capillary refill. Laboratory Data: Blood work reviewed showing sodium was 114, coming up from 106. Potassium is comin g down to 4.4 from a lot higher than that. Also, anion gap is 21.4, bicarb is 19, glucose 130. CBC: Once again, WBC count from 26 to 22. Plan: Continue current care, bowel rest, ambulation if possible. Continue with medical service for electrolyte imbalance, incentive spirometry. Continue the antibiotics. HM/MODL Voice ID: [id number] Report ID: [id number]
[2022-08-15] MEDS: D5 0.2 NS 1,000 ML IV SCH (18:39)
--- NOTE | 2022-08-15 19:56 | P.PN ---
Subjective Date of Service: 08/15/22 Primary Care Provider: None Chief Complaint: Incarcerated bowel, hyponatremia POD # 1 from emergent laparotomy with bowel resection, repair of a strangulated hernia. He reports that his abdominal pain is well-controlled with his current pain regimen. He denies any nausea, vomiting. He has not passed any flatus or stool since the surgery. Review of Systems 10-point ROS is otherwise unremarkable Gastrointestinal: Abdominal Pain Physical Examination - Vital Signs Temperature: 97.8 F Blood Pressure: 118/63 Pulse: 79 Respirations: 19 Pulse Ox (%): 97 - Physical Exam General: Alert, In no apparent distress, Oriented x3 HEENT: Atraumatic, Other (NG tube in place), EOMI, Sclerae nonicteric Respiratory: Clear to auscultation bilaterally, Normal air movement Cardiovascular: No edema, Regular rate/rhythm, Normal S1 S2, No gallops, No rubs, No murmurs Gastrointestinal: Hypoactive, Other (incision is covered in surgical dressing), Tenderness (generalized) Musculoskeletal: No clubbing Integumentary: No rashes Neurological: Normal speech, Normal affect - Studies Laboratory Data (last 24 hrs) 08/14/22 11:33: Sodium Cancelled, Potassium Cancelled, BUN Cancelled, Creatinine Cancelled, Glucose Cancelled, Total Bilirubin Cancelled, AST Cancelled, ALT Cancelled, Alkaline Phosphatase Cancelled Assessment And Plan - Plan # Acute Small Bowel Obstruction and Bowel Incarceration through Left Supraumbilical Hernia - General Surgery consulted and spoke with Dr. Alvarado - recommendations appreciated - S/P emergent laparotomy with bowel resection, repair of a strangulated hernia (08/14/2022) - CT abodmen/pelvis = "small bowel obstruction secondary to a herniated loop of small bowel into an 8 centimeter diameter left supraumbilical hernia." - NG tube in place - NPO - PRN pain control # Severe Hyponatremia - Sodium level: 103 -> 106 -> 110 -> 113 -> 113 -> 114 - No need for hypertonic saline as his mentation is completely intact - Consulted Nephrology and spoke with Dr. Simmons - cesilia appreciated - Caution not to correct too fast to avoid central pontine myelinolysis - IV fluids per Neph - Ordered TSH # KDIGO Stage III Acute Kidney Injury with Hyperkalemia # Microscopic Hematuria - Consulted Nephrology and spoke with Dr. Aglieco - recommendations appreciated - Creatinine = 7.79 -> 7.39 -> 6.56 -> 6.35 -> 6.09 -> 5.91 (baseline creatinine unknown) - Urinalysis = 1+ glucose, 1+ blood, 250 leukocyte esterase, 5-10 RBCs, > 50 WBCs, trace protein - IV fluids per Nephrology - Monitor creatinine and urine output - Renally dose medications # SIRS Criteria with Lactic Acidosis likely due to SBO with Strangulated Hernia - Severe Sepsis was documented in H&P, but should be removed - thus far, there is no current evidence of infection - Will continue empiric piperacillin-tazobactam per Surgery Brad Wright M.D.
[2022-08-15] MEDS: ONDANSETRON 4 MG/2 ML VIAL IV PRN (20:02)
[2022-08-15 21:36] LABS: Potassium 3.8 mmol/L (3.5-5.1)
--- NOTE | 2022-08-15 22:11 | P.PN ---
Date of Service: 08/15/22 Vital Signs Temp Pulse Resp BP Pulse Ox 97.8 F 74 15 120/69 98 08/15/22 19:57 08/15/22 20:00 08/15/22 20:00 08/15/22 20:00 08/15/22 20:00 Medications Piperacillin Sod/Tazobactam (Sod 3.375 gm/ Sodium Chloride) 100 mls @ 25 mls/hr IV Q8HR [facility]; Protocol Last Admin: 08/15/22 17:24 Dose: 100 mls Sodium Chloride (Sodium Chloride 0.45%) 1,000 mls @ 125 mls/hr IV .Q8H ANITHA Dextrose/Sodium Chloride (Dextrose 5% 0.2% Sodium Chloride) 1,000 mls @ 150 mls/hr IV .Q6H40M [facility] Last Admin: 08/15/22 18:39 Dose: 1,000 mls Morphine Sulfate (Morphine 4 Mg/Ml Syr) 4 mg IV Q2H PRN PRN Reason: Pain scale 5-7 (Moderate) Last Admin: 08/15/22 20:02 Dose: 4 mg Mupirocin (Mupirocin 2% Oint 22gm Tube) 1 appl TOP BID [facility] Stop: 08/20/22 09:01 Last Admin: 08/15/22 08:28 Dose: 1 applic Ondansetron HCl (Ondansetron 4 Mg/2 Ml Vial) 4 mg IV Q6HP PRN PRN Reason: NAUSEA / VOMITING Last Admin: 08/15/22 20:02 Dose: 4 mg Sodium Chloride (Flush Normal Saline 10 Ml) 10 ml IV BID [facility] Last Admin: 08/15/22 22:00 Dose: 10 ml Microbiology Results 08/14/22 11:53 Blood - Blood Aerobic Blood Culture - Preliminary No growth in 24 hours. 08/14/22 11:53 Blood - Blood Anaerobic Blood Culture - Preliminary No growth in 24 hours. 08/14/22 11:41 Blood - Blood Aerobic Blood Culture - Preliminary No growth in 24 hours. 08/14/22 11:41 Blood - Blood Anaerobic Blood Culture - Preliminary No growth in 24 hours. Assessment/ Plan: Nephrology No dyspnea No chest pain Abdominal pain No acute events overnight Vitals, medications, blood work and imaging reviewed in the chart. General: Oriented x3, Cooperative HEENT: Atraumatic. NGT Neck: Supple Respiratory: Normal air movement Cardiovascular: No edema, Regular rate/rhythm Gastrointestinal: Tenderness Musculoskeletal: No clubbing, No contractures Integumentary: No rashes, No cyanosis Neurological: Normal speech Laboratory Data (last 24 hrs) 08/14/22 11:33: Sodium Cancelled, Potassium Cancelled, BUN Cancelled, Creatinine Cancelled, Glucose Cancelled, Total Bilirubin Cancelled, AST Cancelled, ALT Cancelled, Alkaline Phosphatase Cancelled 08/14/22 11:33: PT 10.8, INR 0.98, APTT 26.2 08/14/22 10:23: Sodium 103 L*, Potassium 5.6 H*, BUN 253 H, Creatinine 7.79 H*, Glucose 132 H, Total Bilirubin 0.5, AST 34, ALT 28, Alkaline Phosphatase 107, Lipase 596 H 08/14/22 10:23: WBC 26.70 H*, Hgb 17.2, Hct 48.3, Plt Count 439 H Imagings Data: EXAM DESCRIPTION: CT - Abdomen Pelvis Wo Contrast - 08/14/2022 11:25 am CLINICAL HISTORY: abdominal pain COMPARISON: No comparisons TECHNIQUE: Axial [address] imaging of the abdomen and pelvis was performed without IV contrast. No IV contrast was given because of allergy, abnormal renal function, patient refusal or physician request. No oral contrast administered. All CT scans are performed using dose optimization technique as appropriate and may include automated exposure control or mA/KV adjustment according to patient size. FINDINGS: Minimal interstitial and patchy alveolar opacities are present in the left lung base. Right lung base is clear. No pleural effusions. No cardiomegaly or pericardial effusion. The liver, spleen and pancreas show no suspicious findings on non-contrast imaging. Gallbladder and biliary tree are also without suspicious finding. No hydronephrosis or suspicious renal mass. No significant adrenal finding. Isodense renal masses and pyelonephritis cannot be excluded in the absence of IV contrast. Mostly contracted urinary bladder shows no suspicious finding. Stomach is filled with fluid and air. No gastric wall thickening or mass. There is mild dilatation of the duodenum. Multiple dilated loops of jejunum are noted up to 4.4 cm in diameter. Dilation of small bowel continues to the jejunum and ileum junction. There is an 8 centimeter diameter left supraumbilical hernia. The neck is 3 cm in diameter. The hernia contains a loop of small bowel. Distal loops of small bowel are decompressed. Colon is decompressed. Herniated bowel loop shows mildly edematous martel. The herniated fat is edematous. No free air or pneumatosis. No abnormal free fluid collection. No mass or bulky lymphadenopathy. No suspicious bony findings. IMPRESSION: Small bowel obstruction secondary to a herniated loop of small bowel into an 8 centimeter diameter left supraumbilical hernia. Small bowel distal to the herniation decompressed along with decompressed colon. Herniated loop of small bowel at the jejunum and ileum junction shows mild edema. There is congestion and edema of the herniated fat. There are patchy interstitial and alveolar opacities in the left lung base which could be a concurrent minimal infiltrate. Conclusions/Impression: LYN in the setting of Sepsis/ Hypovolemia -No NSAIDs -Increase IVF Hypovolemic Hyponatremia of unclear duration -IVF adjusted -BMP q4h -DDAVP prn Hyperkalemia -NPO -Continue IVF Hypocalcemia HyperPO4 -NPO -Replete calcium prn Hypoalbuminemia in the setting of moderate malnutrition Debility/ Weakness -NPO -Advance nutrition as indicated Sepsis/ Septic Shock Incarcerated Hernia sp bowel resection -Continue abx -Follow up with surgery Case reviewed with Dr. Wright >30min patient care
[2022-08-16 01:01] LABS: Potassium 3.8 mmol/L (3.5-5.1)
[2022-08-16] MEDS: PIPER TAZO 3.375 GM in NA CHLORIDE 0.9% 100 ML IV SCH ×3 (01:09→19:58)
[2022-08-16] MEDS: D5 0.2 NS 1,000 ML IV SCH ×2 (01:40→07:20)
[2022-08-16 04:38] LABS: Absolute Lymphocytes (CBC) 0.5 K/uL (0.7-4.9); Hematocrit 37.8 % (39.6-49.0); Lymphocytes % 2.8 % (15.3-44.8); MCV 85.1 fL (80-100); MPV 9.6 fL (7.6-11.3); RBC Red Blood Cell Count 4.45 M/uL (4.33-5.43)
[2022-08-16 04:40] LABS: Calcium Oxalate Crystals- Ur Few /HPF (None Seen); Specific Gravity 1.015 (1.005-1.030); Urine Bacteria <20 /HPF (<20); Urine Bilirubin NEGATIVE (Negative); Urine Blood Negative (Negative); Urine Clarity Turbid (Clear); Urine Color Yellow (Yellow); Urine Glucose 1+ (Negative); Urine Mucus Slight /HPF (None Seen); Urine Protein TRACE (Negative); Urine RBC <5 /HPF (None Seen); Urine Urobilinogen Normal (Normal)
[2022-08-16 04:43] LABS: UR CL RANDOM < 12 mmol/L (25-40); UR SODIUM < 15 mmol/L (27-287)
[2022-08-16 04:57] LABS: Thyroid Stimulating Hormone 0.189 uIU/mL (0.358-3.740); Uric Acid 14.7 mg/dL (3.5-7.2)
[2022-08-16 05:07] LABS: Potassium 3.8 mmol/L (3.5-5.1)
[2022-08-16] MEDS: MUPIROCIN 2% OINT 22GM TUBE TOP SCH ×2 (07:50→19:55)
[2022-08-16] MEDS: NACHLORIDE 0.45% 1,000 ML IV SCH ×2 (08:49→14:41)
[2022-08-16 09:36] LABS: Potassium 3.9 mmol/L (3.5-5.1)
--- NOTE | 2022-08-16 12:38 | P.PN ---
Subjective Date of Service: 08/16/22 Primary Care Provider: None Chief Complaint: Incarcerated bowel, hyponatremia POD # 2 from emergent laparotomy with bowel resection, repair of a strangulated hernia. He reports that his pain is well-controlled with his current pain regimen. He denies any nausea, vomiting. He has not passed any flatus or stool since the surgery. His sodium remains low, but is stable. Appreciate Nephrology recs. Review of Systems 10-point ROS is otherwise unremarkable Gastrointestinal: Abdominal Pain Physical Examination - Vital Signs Temperature: 96.8 F Blood Pressure: 142/66 Pulse: 73 Respirations: 21 Pulse Ox (%): 97 Assessment And Plan - Plan - Physical Exam General: Alert, In no apparent distress, Oriented x3 HEENT: Atraumatic, Other (NG tube in place, with green/brown output), EOMI, Sclerae nonicteric Respiratory: Clear to auscultation bilaterally, Normal air movement Cardiovascular: No edema, Regular rate/rhythm, Normal S1 S2, No gallops, No rubs, No murmurs Gastrointestinal: Hypoactive, Other (incision is covered in surgical dressing), Tenderness (generalized) Musculoskeletal: No clubbing Integumentary: No rashes Neurological: Normal speech, Normal affect # Acute Small Bowel Obstruction and Bowel Incarceration through Left Supraumbilical Hernia - General Surgery consulted and spoke with Dr. Alvarado - recommendations appreciated - S/P emergent laparotomy with bowel resection, repair of a strangulated hernia (08/14/2022) - CT abodmen/pelvis = "small bowel obstruction secondary to a herniated loop of small bowel into an 8 centimeter diameter left supraumbilical hernia." - NG tube in place - NPO - diet orders per General Surgery - PRN pain control # Severe Hyponatremia - Sodium level: 103 -> 106 -> 110 -> 113 -> 114 -> 115 -> 116 -> 114 -> 116 --> 113 - No need for hypertonic saline as his mentation is completely intact - Consulted Nephrology and spoke with Dr. Simmons - cesilia appreciated - Caution not to correct too quickly to avoid central pontine myelinolysis - IV fluids per Neph # KDIGO Stage III Acute Kidney Injury with Hyperkalemia # Microscopic Hematuria - Consulted Nephrology and spoke with Dr. Simmons - cesilia appreciated - Creatinine = 7.79 -> 7.39 -> 6.56 -> 6.35 -> 6.09 -> 5.91 -> 6.03 -> 6.06 -> 6.25 -> 6.53 (baseline creatinine unknown) - Urinalysis = 1+ glucose, 1+ blood, 250 leukocyte esterase, 5-10 RBCs, > 50 WBCs, trace protein - IV fluids per Nephrology - Strict I/O - Monitor creatinine and urine output - Renally dose medications # SIRS Criteria with Lactic Acidosis likely due to SBO with Strangulated Hernia - Severe Sepsis was documented in H&P, but should be removed - thus far, there is no current evidence of infection - Will continue empiric piperacillin-tazobactam per Surgery # Mild Hyperthyroidism - TSH 0.189, Free T4 1.50 - Hold off on methimazole as this is borderline, and he is acutely ill - likely not due to overt hyperthyroidism - Monitor TSH/T4 levels Brad Wright M.D.
[2022-08-16] MEDS: MORPHINE 4 MG/ML SYR IV PRN ×3 (12:44→20:00)
[2022-08-16] MEDS ORDERED: SODIUM CHLORIDE 0.9% 10ML INJ IV PRN (14:13)
[2022-08-16] MEDS: PANTOPRAZOLE 40 MG INJ IVP SCH ×2 (14:41→19:58)
[2022-08-16] MEDS: NA CHLORIDE 0.9% 1,000 ML IV SCH (18:16)
--- NOTE | 2022-08-16 18:38 | PN ---
Date of Progress Note: 08/16/2022 Diagnosis: Strangulated ventral hernia with shock, hypovolemia, hyponatremia, renal insufficiency, s tatus post laparotomy emergently with bowel resection and anastomosis. Subjective: The patient is doing better. He is cooperating. He is feeling better now. No shortnes s of breath. No chest pain. No fever. Objective: Chest: Clear. Abdomen: Soft and depressible. Bowel sounds still negative. Midline incision is intact. Extremiti es: Good capillary refill. Laboratory Data: Blood work is improving. WBC count came down from 26 to 16 with hemoglobin of 13.1 . INR 0.98 with sodium 115 and chloride 74. Creatinine is still high, and 6.69. Glucose is 94. Plan: Continue bowel rest. Continue NG tube. We encouraged ambulation. Continue medical care for electrolytes. He has not passed any gas. He had a bowel movement, so we are going to hold diet unti l we have one of those and his bowel regain function. HM/MODL Voice ID: [id number] Report ID: [id number]
--- NOTE | 2022-08-16 21:10 | P.PN ---
Date of Service: 08/16/22 Vital Signs Temp Pulse Resp BP Pulse Ox 96.9 F 79 16 121/72 97 08/16/22 16:00 08/16/22 16:00 08/16/22 16:00 08/16/22 16:00 08/16/22 16:00 Medications Piperacillin Sod/Tazobactam (Sod 3.375 gm/ Sodium Chloride) 100 mls @ 25 mls/hr IV Q12HR [facility]; Protocol Last Admin: 08/16/22 19:58 Dose: 100 mls Sodium Chloride (Ns 1000 Ml Ivbag) 1,000 mls @ 150 mls/hr IV .Q6H40M [facility] Last Admin: 08/16/22 18:16 Dose: 1,000 mls Morphine Sulfate (Morphine 4 Mg/Ml Syr) 4 mg IV Q2H PRN PRN Reason: Pain scale 8-10 (Severe) Last Admin: 08/16/22 20:00 Dose: 4 mg Mupirocin (Mupirocin 2% Oint 22gm Tube) 1 appl TOP BID [facility] Stop: 08/20/22 09:01 Last Admin: 08/16/22 19:55 Dose: 1 applic Ondansetron HCl (Ondansetron 4 Mg/2 Ml Vial) 4 mg IV Q6HP PRN PRN Reason: NAUSEA / VOMITING Last Admin: 08/15/22 20:02 Dose: 4 mg Pantoprazole Sodium (Pantoprazole 40 Mg Inj) 40 mg IVP Q12HR [facility]; Protocol Last Admin: 08/16/22 19:58 Dose: 40 mg Sodium Chloride (Flush Normal Saline 10 Ml) 10 ml IV BID [facility] Last Admin: 08/16/22 19:58 Dose: 10 ml Sodium Chloride (Sodium Chloride 0.9% 10ml Inj) 10 ml IV UD PRN PRN Reason: Diluant Microbiology Results 08/14/22 11:53 Blood - Blood Aerobic Blood Culture - Preliminary No growth in 24 hours. 08/14/22 11:53 Blood - Blood Anaerobic Blood Culture - Preliminary No growth in 24 hours. 08/14/22 11:41 Blood - Blood Aerobic Blood Culture - Preliminary No growth in 24 hours. 08/14/22 11:41 Blood - Blood Anaerobic Blood Culture - Preliminary No growth in 24 hours. Assessment/ Plan: Nephrology Mild dyspnea No chest pain Nurse reports decreasing urine output No acute events overnight Vitals, medications, blood work and imaging reviewed in the chart. General: Oriented x3, Cooperative HEENT: Atraumatic. NGT Neck: Supple Respiratory: Normal air movement Cardiovascular: No edema, Regular rate/rhythm Gastrointestinal: Tenderness Musculoskeletal: No clubbing, No contractures Integumentary: No rashes, No cyanosis Neurological: Normal speech Laboratory Data (last 24 hrs) 08/14/22 11:33: Sodium Cancelled, Potassium Cancelled, BUN Cancelled, Creatinine Cancelled, Glucose Cancelled, Total Bilirubin Cancelled, AST Cancelled, ALT Cancelled, Alkaline Phosphatase Cancelled 08/14/22 11:33: PT 10.8, INR 0.98, APTT 26.2 08/14/22 10:23: Sodium 103 L*, Potassium 5.6 H*, BUN 253 H, Creatinine 7.79 H*, Glucose 132 H, Total Bilirubin 0.5, AST 34, ALT 28, Alkaline Phosphatase 107, Lipase 596 H 08/14/22 10:23: WBC 26.70 H*, Hgb 17.2, Hct 48.3, Plt Count 439 H Imagings Data: EXAM DESCRIPTION: CT - Abdomen Pelvis Wo Contrast - 08/14/2022 11:25 am CLINICAL HISTORY: abdominal pain COMPARISON: No comparisons TECHNIQUE: Axial [address] imaging of the abdomen and pelvis was performed without IV contrast. No IV contrast was given because of allergy, abnormal renal function, patient refusal or physician request. No oral contrast administered. All CT scans are performed using dose optimization technique as appropriate and may include automated exposure control or mA/KV adjustment according to patient size. FINDINGS: Minimal interstitial and patchy alveolar opacities are present in the left lung base. Right lung base is clear. No pleural effusions. No cardiomegaly or pericardial effusion. The liver, spleen and pancreas show no suspicious findings on non-contrast imaging. Gallbladder and biliary tree are also without suspicious finding. No hydronephrosis or suspicious renal mass. No significant adrenal finding. Isodense renal masses and pyelonephritis cannot be excluded in the absence of IV contrast. Mostly contracted urinary bladder shows no suspicious finding. Stomach is filled with fluid and air. No gastric wall thickening or mass. There is mild dilatation of the duodenum. Multiple dilated loops of jejunum are noted up to 4.4 cm in diameter. Dilation of small bowel continues to the jejunum and ileum junction. There is an 8 centimeter diameter left supraumbilical hernia. The neck is 3 cm in diameter. The hernia contains a loop of small bowel. Distal loops of small bowel are decompressed. Colon is decompressed. Herniated bowel loop shows mildly edematous martel. The herniated fat is edematous. No free air or pneumatosis. No abnormal free fluid collection. No mass or bulky lymphadenopathy. No suspicious bony findings. IMPRESSION: Small bowel obstruction secondary to a herniated loop of small bowel into an 8 centimeter diameter left supraumbilical hernia. Small bowel distal to the herniation decompressed along with decompressed colon. Herniated loop of small bowel at the jejunum and ileum junction shows mild edema. There is congestion and edema of the herniated fat. There are patchy interstitial and alveolar opacities in the left lung base which could be a concurrent minimal infiltrate. Conclusions/Impression: LYN in the setting of Sepsis/ Hypovolemia complicated by ATN -No NSAIDs -IVF adjusted -May need to consider dialysis if persistent LYN with worsening oliguria Hypovolemic Hyponatremia of unclear duration -IVF adjusted -BMP q4h -DDAVP prn Hyperkalemia -NPO -Continue IVF Hypocalcemia HyperPO4 -NPO -Replete calcium prn Hypoalbuminemia in the setting of moderate malnutrition Debility/ Weakness -NPO -Advance nutrition as indicated Sepsis/ Septic Shock Incarcerated Hernia sp bowel resection -Continue abx -Follow up with surgery Case reviewed with Dr. Wright and Dr. Alvarado >30min patient care
[2022-08-17] MEDS: NA CHLORIDE 0.9% 1,000 ML IV SCH ×3 (00:27→15:09)
[2022-08-17 01:45] LABS: Potassium 3.9 mmol/L (3.5-5.1)
[2022-08-17 04:44] LABS: Absolute Lymphocytes (CBC) 0.3 K/uL (0.7-4.9); MCV 85.3 fL (80-100); MPV 9.3 fL (7.6-11.3); RBC Red Blood Cell Count 3.75 M/uL (4.33-5.43)
[2022-08-17 05:11] LABS: Bilirubin Direct 0.2 mg/dL (0-0.2); Bilirubin Total 0.6 mg/dL (0.2-1.0); Protein, Total 5.7 g/dL (6.4-8.2); Uric Acid 14.5 mg/dL (3.5-7.2)
[2022-08-17 05:12] LABS: Phosphorus 8.7 mg/dL (2.5-4.9)
[2022-08-17] MEDS: MORPHINE 4 MG/ML SYR IV PRN ×4 (05:30→21:15)
[2022-08-17 05:57] LABS: UR CL RANDOM < 12 mmol/L (25-40); UR SODIUM < 15 mmol/L (27-287)
--- NOTE | 2022-08-17 07:23 | RAD REPORT ---
EXAM DESCRIPTION: RAD - Chest Single View - 08/17/2022 6:40 am CLINICAL HISTORY: Dyspnea. Volume status. COMPARISON: None TECHNIQUE: AP portable chest image was obtained 08/17/2022 6:40 am . FINDINGS: Lung volumes are low. No peripheral mass or consolidation. Endotracheal NG/OG tube is in p lace extending below the diaphragm, off the field view. Heart and vasculature are normal. No measurab le pleural effusion and no pneumothorax. No acute bony abnormality seen. No acute aortic findings geni pected. IMPRESSION: No acute cardiopulmonary process.
[2022-08-17] MEDS: PIPER TAZO 3.375 GM in NA CHLORIDE 0.9% 100 ML IV SCH ×2 (08:25→21:04)
[2022-08-17] MEDS: PANTOPRAZOLE 40 MG INJ IVP SCH ×2 (08:26→21:04)
[2022-08-17] MEDS: MUPIROCIN 2% OINT 22GM TUBE TOP SCH ×2 (08:26→21:05)
[2022-08-17 10:17] LABS: Potassium 4.1 mmol/L (3.5-5.1)
--- NOTE | 2022-08-17 11:17 | RAD REPORT ---
EXAM DESCRIPTION: RAD - Wrist Right 3 View - 08/17/2022 10:39 am CLINICAL HISTORY: Right wrist pain, redness--r/o pseudogout COMPARISON: No comparisons FINDINGS: No fracture is identified. There is no dislocation or periosteal reaction noted. No acute bone or joint finding identified. Soft tissues over the dorsum of the wrist and proximal hand appear edematous. No air or foreign body in the soft tissues. IMPRESSION: Soft tissue swelling with no acute bone or joint finding. No air or foreign body in the soft tissues.
--- NOTE | 2022-08-17 11:42 | P.PN ---
Subjective Date of Service: 08/17/22 Primary Care Provider: None Chief Complaint: Incarcerated bowel, hyponatremia POD # 3 from emergent laparotomy with bowel resection, repair of a strangulated hernia. He reports that his pain is moderately-controlled, grading it a 5/10 in severity. He denies any nausea, vomiting. He has not passed any flatus or stool since the surgery. His sodium is slightly up-trending, but his creatinine is worsening compared to yesterday. Appreciate Nephrology recs. This morning, his right wrist has become erythematous and swollen. There is no IV in the right arm. Review of Systems 10-point ROS is otherwise unremarkable Gastrointestinal: Abdominal Pain Integumentary: Rash (erythema, swelling right wrist) Physical Examination - Vital Signs Temperature: 96.7 F Blood Pressure: 144/80 Pulse: 83 Respirations: 14 Pulse Ox (%): 96 Assessment And Plan - Plan - Physical Exam General: Alert, In no apparent distress, Oriented x3 HEENT: Atraumatic, Other (NG tube in place, with green/brown output), Sclerae nonicteric Respiratory: Clear to auscultation bilaterally, Normal air movement Cardiovascular: No edema, Regular rate/rhythm, Normal S1 S2, No gallops, No rubs, No murmurs Gastrointestinal: Hypoactive, Other (incision is covered in surgical dressing), Tenderness (generalized) Musculoskeletal: No clubbing. Right wrist is with erythema, swelling, and tenderness Integumentary: No rashes Neurological: Normal speech, Normal affect # Acute Small Bowel Obstruction and Bowel Incarceration through Left Supraumbilical Hernia - General Surgery consulted and spoke with Dr. Alvarado - recommendations appreciated - S/P emergent laparotomy with bowel resection, repair of a strangulated hernia (08/14/2022) - CT abodmen/pelvis = "small bowel obstruction secondary to a herniated loop of small bowel into an 8 centimeter diameter left supraumbilical hernia." - NG tube in place - NPO - diet orders per General Surgery - PRN pain control # Severe Hyponatremia - Sodium level: 103 -> 106 -> 110 -> 113 -> 114 -> 115 -> 116 -> 114 -> 116 -> 113 -> 115 -> 114 -> 114 -> 118 - No need for hypertonic saline as his mentation is completely intact - Consulted Nephrology and spoke with Dr. Simmons - recommendations appreciated - Caution not to correct too quickly to avoid central pontine myelinolysis - IV fluids per Neph # KDIGO Stage III Acute Kidney Injury with Hyperkalemia # Microscopic Hematuria - Consulted Nephrology and spoke with Dr. Simmons - recommendations appreciated - Creatinine = 7.79 -> 7.39 -> 6.56 -> 6.35 -> 6.09 -> 5.91 -> 6.03 -> 6.06 -> 6.25 -> 6.53 -> 6.69 -> 6.89 -> 6.90 -> 7.21 -> 7.02 -> 7.25 (baseline creatinine unknown) - Urinalysis = 1+ glucose, 1+ blood, 250 leukocyte esterase, 5-10 RBCs, > 50 WBCs, trace protein - IV fluids per Nephrology - Strict I/O - Monitor creatinine and urine output - Renally dose medications # Right Wrist Erythema/Swelling - Based on exam, findings are concerning for pseduogout/gout - Ordered right wrist x-ray # SIRS Criteria with Lactic Acidosis likely due to SBO with Strangulated Hernia - Severe Sepsis was documented in H&P, but should be removed - thus far, there is no current evidence of infection - Will continue empiric piperacillin-tazobactam per Surgery # Mild Hyperthyroidism - TSH 0.189, Free T4 1.50 - Hold off on methimazole as this is borderline, and he is acutely ill - likely not due to overt hyperthyroidism - Monitor TSH/T4 levels Brad Wright M.D.
[2022-08-17 14:01] LABS: Potassium 4.1 mmol/L (3.5-5.1)
[2022-08-17] MEDS ORDERED: D50W 25 GM/50 ML SYRINGE IV PRN (15:14)
[2022-08-17] MEDS ORDERED: D10W 125 ML IV PRN (15:20)
--- NOTE | 2022-08-17 15:30 | RAD REPORT ---
EXAM DESCRIPTION: US - UPPER EXTREMITY VENOUS UNILATE - 08/17/2022 3:25 pm CLINICAL HISTORY: Right arm pain and swelling COMPARISON: None. TECHNIQUE: Real-time sonographic evaluation of the right upper extremity deep venous systems was per formed. FINDINGS: Normal compressibility, flow augmentation, phasic flow and spontaneous flow are identified in the right upper extremity deep venous system. No intraluminal filling defects seen. Internal jugu lar and subclavian veins are normal as well. IMPRESSION: No DVT in the right upper extremity.
--- NOTE | 2022-08-17 18:01 | P.PN ---
Date of Service: 08/17/22 Vital Signs Temp Pulse Resp BP Pulse Ox 97.3 F 88 16 135/72 96 08/17/22 12:00 08/17/22 16:00 08/17/22 17:12 08/17/22 16:00 08/17/22 16:00 Medications Piperacillin Sod/Tazobactam (Sod 3.375 gm/ Sodium Chloride) 100 mls @ 25 mls/hr IV Q12HR [facility]; Protocol Last Admin: 08/17/22 08:25 Dose: 100 mls Sodium Chloride (Ns 1000 Ml Ivbag) 1,000 mls @ 150 mls/hr IV .Q6H40M [facility] Last Admin: 08/17/22 15:09 Dose: 1,000 mls Dextrose (Dextrose 10% Water Iv Soln.) 125 mls @ 0 mls/hr IV PRN PRN; Protocol PRN Reason: HYPOGLYCEMIA Last Admin: 08/17/22 15:22 Dose: 125 mls Morphine Sulfate (Morphine 4 Mg/Ml Syr) 4 mg IV Q2H PRN PRN Reason: Pain scale 8-10 (Severe) Last Admin: 08/17/22 17:12 Dose: 4 mg Mupirocin (Mupirocin 2% Oint 22gm Tube) 1 appl TOP BID [facility] Stop: 08/20/22 09:01 Last Admin: 08/17/22 08:26 Dose: 1 applic Ondansetron HCl (Ondansetron 4 Mg/2 Ml Vial) 4 mg IV Q6HP PRN PRN Reason: NAUSEA / VOMITING Last Admin: 08/15/22 20:02 Dose: 4 mg Pantoprazole Sodium (Pantoprazole 40 Mg Inj) 40 mg IVP Q12HR [facility]; Protocol Last Admin: 08/17/22 08:26 Dose: 40 mg Sodium Chloride (Flush Normal Saline 10 Ml) 10 ml IV BID [facility] Last Admin: 08/17/22 08:26 Dose: 10 ml Sodium Chloride (Sodium Chloride 0.9% 10ml Inj) 10 ml IV UD PRN PRN Reason: Diluant Microbiology Results 08/14/22 11:53 Blood - Blood Aerobic Blood Culture - Preliminary No growth in 24 hours. 08/14/22 11:53 Blood - Blood Anaerobic Blood Culture - Preliminary No growth in 24 hours. 08/14/22 11:41 Blood - Blood Aerobic Blood Culture - Preliminary No growth in 24 hours. 08/14/22 11:41 Blood - Blood Anaerobic Blood Culture - Preliminary No growth in 24 hours. Assessment/ Plan: Nephrology No dyspnea No chest pain Right wrist pain No acute events overnight Vitals, medications, blood work and imaging reviewed in the chart. General: Oriented x3, Cooperative HEENT: Atraumatic. NGT Neck: Supple Respiratory: Normal air movement Cardiovascular: No edema, Regular rate/rhythm Gastrointestinal: Tenderness Musculoskeletal: No clubbing, No contractures Integumentary: No rashes, No cyanosis Neurological: Normal speech Laboratory Data (last 24 hrs) 08/14/22 11:33: Sodium Cancelled, Potassium Cancelled, BUN Cancelled, Creatinine Cancelled, Glucose Cancelled, Total Bilirubin Cancelled, AST Cancelled, ALT Cancelled, Alkaline Phosphatase Cancelled 08/14/22 11:33: PT 10.8, INR 0.98, APTT 26.2 08/14/22 10:23: Sodium 103 L*, Potassium 5.6 H*, BUN 253 H, Creatinine 7.79 H*, Glucose 132 H, Total Bilirubin 0.5, AST 34, ALT 28, Alkaline Phosphatase 107, Lipase 596 H 08/14/22 10:23: WBC 26.70 H*, Hgb 17.2, Hct 48.3, Plt Count 439 H Imagings Data: EXAM DESCRIPTION: CT - Abdomen Pelvis Wo Contrast - 08/14/2022 11:25 am CLINICAL HISTORY: abdominal pain COMPARISON: No comparisons TECHNIQUE: Axial [address] imaging of the abdomen and pelvis was performed without IV contrast. No IV contrast was given because of allergy, abnormal renal function, patient refusal or physician request. No oral contrast administered. All CT scans are performed using dose optimization technique as appropriate and may include automated exposure control or mA/KV adjustment according to patient size. FINDINGS: Minimal interstitial and patchy alveolar opacities are present in the left lung base. Right lung base is clear. No pleural effusions. No cardiomegaly or pericardial effusion. The liver, spleen and pancreas show no suspicious findings on non-contrast imaging. Gallbladder and biliary tree are also without suspicious finding. No hydronephrosis or suspicious renal mass. No significant adrenal finding. Isodense renal masses and pyelonephritis cannot be excluded in the absence of IV contrast. Mostly contracted urinary bladder shows no suspicious finding. Stomach is filled with fluid and air. No gastric wall thickening or mass. There is mild dilatation of the duodenum. Multiple dilated loops of jejunum are noted up to 4.4 cm in diameter. Dilation of small bowel continues to the jejunum and ileum junction. There is an 8 centimeter diameter left supraumbilical hernia. The neck is 3 cm in diameter. The hernia contains a loop of small bowel. Distal loops of small bowel are decompressed. Colon is decompressed. Herniated bowel loop shows mildly edematous martel. The herniated fat is edematous. No free air or pneumatosis. No abnormal free fluid collection. No mass or bulky lymphadenopathy. No suspicious bony findings. IMPRESSION: Small bowel obstruction secondary to a herniated loop of small bowel into an 8 centimeter diameter left supraumbilical hernia. Small bowel distal to the herniation decompressed along with decompressed colon. Herniated loop of small bowel at the jejunum and ileum junction shows mild edema. There is congestion and edema of the herniated fat. There are patchy interstitial and alveolar opacities in the left lung base which could be a concurrent minimal infiltrate. Conclusions/Impression: LYN in the setting of hypovolemia complicated by ATN -No NSAIDs -IVF adjusted -Plan to initiate dialysis in the morning -Case reviewed with Dr. Alvarado; he will place a tunneled CVC in the morning Hypovolemic Hyponatremia of unclear duration -IVF adjusted -BMP q4h -DDAVP prn Hyperkalemia, resolved -NPO -Continue IVF Hypocalcemia HyperPO4 -NPO -Replete calcium prn Hypoalbuminemia in the setting of moderate malnutrition Debility/ Weakness -NPO -Advance nutrition as indicated Right wrist pain suspicious for gout -Pain control prn Sepsis/ Septic Shock ruled out at this time Incarcerated Umbilical Hernia sp bowel resection -Continue abx -Follow up with surgery Case reviewed with Dr. Wright and Dr. Alvarado >30min patient care
[2022-08-17] MEDS: D5 0.9 NS 1,000 ML IV SCH (18:39)
[2022-08-17 22:00] LABS: Potassium 3.9 mmol/L (3.5-5.1)
[2022-08-18 01:36] LABS: Potassium 3.9 mmol/L (3.5-5.1)
[2022-08-18] MEDS: D5 0.9 NS 1,000 ML IV SCH ×4 (02:30→21:22)
[2022-08-18 05:09] LABS: Absolute Lymphocytes (CBC) 0.3 K/uL (0.7-4.9); Hematocrit 29.5 % (39.6-49.0); Lymphocytes % 1.8 % (15.3-44.8); MCV 85.4 fL (80-100); MPV 9.1 fL (7.6-11.3); RBC Red Blood Cell Count 3.45 M/uL (4.33-5.43)
[2022-08-18 05:48] LABS: Potassium 4.3 mmol/L (3.5-5.1); Uric Acid 14.4 mg/dL (3.5-7.2)
[2022-08-18 06:04] LABS: Renal Epithelial <5 /HPF (None Seen); Transitional Epithelial <5 /HPF (None Seen); Urine Bacteria <20 /HPF (<20); Urine Bilirubin NEGATIVE (Negative); Urine Blood 2+ (Negative); Urine Clarity Turbid (Clear); Urine Color Light-Yellow (Yellow); Urine Glucose TRACE (Negative); Urine Mucus Slight /HPF (None Seen); Urine Protein TRACE (Negative); Urine Urobilinogen Normal (Normal)
[2022-08-18 06:38] LABS: Blood Morphology Comment NOT SEEN (NOT SEEN); Platelet Estimate ADEQ
[2022-08-18] MEDS ORDERED: D5 0.45 NS 1,000 ML IV SCH (09:00)
[2022-08-18 09:44] LABS: Potassium 3.8 mmol/L (3.5-5.1)
[2022-08-18] MEDS: MUPIROCIN 2% OINT 22GM TUBE TOP SCH ×2 (09:50→21:00)
[2022-08-18] MEDS: PIPER TAZO 3.375 GM in NA CHLORIDE 0.9% 100 ML IV SCH ×2 (09:51→21:02)
[2022-08-18] MEDS: PANTOPRAZOLE 40 MG INJ IVP SCH ×2 (09:51→21:02)
[2022-08-18] MEDS ORDERED: NA CHLORIDE 0.9% 1,000 ML IV PRN (09:55)
[2022-08-18] MEDS ORDERED: MANNITOL 25% 12.5 GM/50 ML VIAL IV PRN (09:55)
[2022-08-18] MEDS ORDERED: ALBUMIN HUMAN 25% 50 ML IV SCH (10:00)
--- NOTE | 2022-08-18 10:32 | P.PN ---
Date of Service: 08/18/22 Vital Signs Temp Pulse Resp BP Pulse Ox 97.4 F 83 17 138/79 93 08/17/22 20:00 08/18/22 08:00 08/18/22 08:00 08/18/22 08:00 08/18/22 08:00 Medications Heparin Sodium (Porcine) (Heparin 1,000 Unit/Ml Vial) 6,000 unit IV EVERY HD PRN PRN Reason: AFTER EACH Piperacillin Sod/Tazobactam (Sod 3.375 gm/ Sodium Chloride) 100 mls @ 25 mls/hr IV Q12HR ANITHA; Protocol Last Admin: 08/18/22 09:51 Dose: 100 mls Dextrose (Dextrose 10% Water Iv Soln.) 125 mls @ 0 mls/hr IV PRN PRN; Protocol PRN Reason: HYPOGLYCEMIA Last Admin: 08/17/22 15:22 Dose: 125 mls Dextrose/Sodium Chloride (D5w Ns 1-Liter Bag) 1,000 mls @ 125 mls/hr IV .Q8H ANITHA Last Admin: 08/18/22 02:30 Dose: 1,000 mls Sodium Chloride (Ns 1000 Ml Ivbag) 1,000 mls @ 0 mls/hr IV .Q0M PRN; Protocol PRN Reason: Priming and BP support at HD Stop: 08/18/22 23:59 Albumin Human (Albumin 25%) 50 mls @ 100 mls/hr IV EVERY HD ANITHA Mannitol (Mannitol 25% 12.5 Gm/50 Ml Vial) 12.5 gm IV EVERY HD PRN; Protocol PRN Reason: Titrate to SBP (MUST DEFINE) Morphine Sulfate (Morphine 4 Mg/Ml Syr) 4 mg IV Q2H PRN PRN Reason: Pain scale 8-10 (Severe) Last Admin: 08/17/22 21:15 Dose: 4 mg Mupirocin (Mupirocin 2% Oint 22gm Tube) 1 appl TOP BID ANITHA Stop: 08/20/22 09:01 Last Admin: 08/18/22 09:50 Dose: 1 applic Ondansetron HCl (Ondansetron 4 Mg/2 Ml Vial) 4 mg IV Q6HP PRN PRN Reason: NAUSEA / VOMITING Last Admin: 08/15/22 20:02 Dose: 4 mg Pantoprazole Sodium (Pantoprazole 40 Mg Inj) 40 mg IVP Q12HR ANITHA; Protocol Last Admin: 08/18/22 09:51 Dose: 40 mg Sodium Chloride (Flush Normal Saline 10 Ml) 10 ml IV BID ANITHA Last Admin: 08/18/22 09:50 Dose: 10 ml Sodium Chloride (Sodium Chloride 0.9% 10ml Inj) 10 ml IV UD PRN PRN Reason: Diluant Microbiology Results 08/14/22 11:53 Blood - Blood Aerobic Blood Culture - Preliminary No growth in 24 hours. 08/14/22 11:53 Blood - Blood Anaerobic Blood Culture - Preliminary No growth in 24 hours. 08/14/22 11:41 Blood - Blood Aerobic Blood Culture - Preliminary No growth in 24 hours. 08/14/22 11:41 Blood - Blood Anaerobic Blood Culture - Preliminary No growth in 24 hours. Assessment/ Plan: Nephrology No dyspnea No chest pain Right wrist pain improving No acute events overnight Vitals, medications, blood work and imaging reviewed in the chart. General: Oriented x3, Cooperative HEENT: Atraumatic. NGT Neck: Supple Respiratory: Normal air movement Cardiovascular: No edema, Regular rate/rhythm Gastrointestinal: Tenderness Musculoskeletal: No clubbing, No contractures. Right wrist tender Integumentary: No rashes, No cyanosis Neurological: Normal speech Laboratory Data (last 24 hrs) 08/14/22 11:33: Sodium Cancelled, Potassium Cancelled, BUN Cancelled, Creatinine Cancelled, Glucose Cancelled, Total Bilirubin Cancelled, AST Cancelled, ALT Cancelled, Alkaline Phosphatase Cancelled 08/14/22 11:33: PT 10.8, INR 0.98, APTT 26.2 08/14/22 10:23: Sodium 103 L*, Potassium 5.6 H*, BUN 253 H, Creatinine 7.79 H*, Glucose 132 H, Total Bilirubin 0.5, AST 34, ALT 28, Alkaline Phosphatase 107, Lipase 596 H 08/14/22 10:23: WBC 26.70 H*, Hgb 17.2, Hct 48.3, Plt Count 439 H Imagings Data: EXAM DESCRIPTION: CT - Abdomen Pelvis Wo Contrast - 08/14/2022 11:25 am CLINICAL HISTORY: abdominal pain COMPARISON: No comparisons TECHNIQUE: Axial [address] imaging of the abdomen and pelvis was performed without IV contrast. No IV contrast was given because of allergy, abnormal renal function, patient refusal or physician request. No oral contrast administered. All CT scans are performed using dose optimization technique as appropriate and may include automated exposure control or mA/KV adjustment according to patient size. FINDINGS: Minimal interstitial and patchy alveolar opacities are present in the left lung base. Right lung base is clear. No pleural effusions. No cardiomegaly or pericardial effusion. The liver, spleen and pancreas show no suspicious findings on non-contrast imaging. Gallbladder and biliary tree are also without suspicious finding. No hydronephrosis or suspicious renal mass. No significant adrenal finding. Isodense renal masses and pyelonephritis cannot be excluded in the absence of IV contrast. Mostly contracted urinary bladder shows no suspicious finding. Stomach is filled with fluid and air. No gastric wall thickening or mass. There is mild dilatation of the duodenum. Multiple dilated loops of jejunum are noted up to 4.4 cm in diameter. Dilation of small bowel continues to the jejunum and ileum junction. There is an 8 centimeter diameter left supraumbilical hernia. The neck is 3 cm in diameter. The hernia contains a loop of small bowel. Distal loops of small bowel are decompressed. Colon is decompressed. Herniated bowel loop shows mildly edematous martel. The herniated fat is edematous. No free air or pneumatosis. No abnormal free fluid collection. No mass or bulky lymphadenopathy. No suspicious bony findings. IMPRESSION: Small bowel obstruction secondary to a herniated loop of small bowel into an 8 centimeter diameter left supraumbilical hernia. Small bowel distal to the herniation decompressed along with decompressed colon. Herniated loop of small bowel at the jejunum and ileum junction shows mild edema. There is congestion and edema of the herniated fat. There are patchy interstitial and alveolar opacities in the left lung base which could be a concurrent minimal infiltrate. Conclusions/Impression: LYN in the setting of hypovolemia and complicated by ATN -No NSAIDs -IVF adjusted -First HD today -Tunneled CVC to be placed today by surgery -Social work consult for possible HD placement Hypovolemic Hyponatremia of unclear duration -IVF adjusted -BMP q4h -DDAVP prn Hyperkalemia, resolved -NPO -Continue IVF Hypocalcemia HyperPO4 -NPO -Replete calcium prn Hypoalbuminemia in the setting of moderate malnutrition Debility/ Weakness -NPO -Advance nutrition as indicated Right wrist pain suspicious for gout -Pain control prn Incarcerated Umbilical Hernia sp bowel resection -Continue abx -Follow up with surgery >30min patient care
[2022-08-18] MEDS ORDERED: NS 0.9% VIAL 10 ML ONE (10:44)
[2022-08-18] MEDS ORDERED: NA CHLORIDE 0.9% 100 ML ONE (10:45)
[2022-08-18] MEDS ORDERED: NA CHLORIDE 0.9% 500 ML ONE (10:45)
[2022-08-18] MEDS ORDERED: propofoL 200 MG/20 ML VIAL IV ONE (11:05)
[2022-08-18] MEDS ORDERED: FENTANYL CITR 100 MCG/2 ML ONE (11:05)
[2022-08-18] MEDS ORDERED: ROCURONIUM 50 MG/5 ML VIAL IV ONE (11:06)
[2022-08-18] MEDS ORDERED: ONDANSETRON 4 MG/2 ML VIAL ONE (11:07)
[2022-08-18] MEDS ORDERED: LIDOCAINE 2% MPF 5 ML VIAL ONE (11:07)
[2022-08-18] MEDS ORDERED: MIDAZOLAM HCL 2 MG/2 ML INJ ONE (11:07)
[2022-08-18] MEDS: HEPARIN 5000 UNIT/ML 1 ML VIAL ONE ×2 (11:36→11:37)
--- NOTE | 2022-08-18 11:48 | P.BOP ---
Preoperative diagnosis: strangulated ventral hernia, gangreous bowel, peritonitis, renal failure. Postoperative diagnosis: small bowel obstruction Primary procedure: 1. Placement of cuffed Hemodialysis catheter Secondary procedure: 2. interpretation of fluoroscopy Other procedure(s): 3. RIght neck ultrasound Estimated blood loss: <10cc Specimen: none Findings: as above Anesthesia: General Complications: None Implants: hemosplit cath Transferred to: Recovery Room Condition: Fair
[2022-08-18] MEDS ORDERED: NEOSTIGMINE 1 MG/ML -5 ML ONE (11:54)
[2022-08-18] MEDS ORDERED: GLYCOPYRROLATE 0.2 MG/ML SYR ONE (11:54)
--- NOTE | 2022-08-18 12:34 | RAD REPORT ---
EXAM DESCRIPTION: RAD - Chest Single View - 08/18/2022 12:19 pm CLINICAL HISTORY: s/p HD cath Chest pain. COMPARISON: Chest Single View dated 08/17/2022; Abdomen 1 View (KUB) dated 08/14/2022 FINDINGS: Portable technique limits examination quality. Right-sided venous catheter has tip in the SVC. No postprocedure pneumothorax seen.
--- NOTE | 2022-08-18 13:06 | RAD REPORT ---
EXAM DESCRIPTION: RAD - Fluoroscopy <1 Hour - 08/18/2022 11:51 am CLINICAL HISTORY: Venous catheter insertion. HD CATH COMPARISON: No comparisons FINDINGS: Fluoroscopic imaging is submitted from placement of a venous catheter. Details of the pro cedure not available. Fluoroscopy time: 0.8 minutes.
[2022-08-18] MEDS: MORPHINE 4 MG/ML SYR IV PRN ×3 (13:17→23:35)
[2022-08-18] MEDS ORDERED: ALBUMIN HUMAN 25% 100 ML IV ONE (18:00)
[2022-08-18] MEDS: ONDANSETRON 4 MG/2 ML VIAL IV PRN (20:30)
--- NOTE | 2022-08-19 00:35 | OP ---
Surgeon: Sagar Alvarado MD Preoperative Diagnosis: Renal failure, history of a strangulated ventral hernia, gangrenous bowel, s mall-bowel obstruction, acidosis and hypovolemia shock. Postoperative Diagnosis: Renal failure, history of a strangulated ventral hernia, gangrenous bowel, small-bowel obstruction, acidosis and hypovolemia shock. Procedure: 1.Placement of a cuff hemodialysis catheter in the right internal jugular vein. 2.Interpretation of fluoroscopy. 3.Right neck ultrasound for placement of catheter. Estimated Blood Loss: Less than 10 mL. Anesthesia: General plus local. Implant: A HemoSplit hemodialysis catheter. Indications: This is a case of a male with above diagnosis. I have fully explained the benefits, al ternatives, and risks of placement of hemodialysis catheter, which include, but not limited to infect ion, bleeding, damage to adjacent structures, anesthesia complication, pneumothorax, hemothorax, PEs, DVTs, FL and even . He also understands this may not relieve any symptoms. He might need more than one surgical intervention. He also understands this was a place with the request of Dr. Love bowen, so he has to follow with him to make sure that it is removed whenever he no longer need it. He un derstood this is a temporary catheter. If he is going to continue on long-term dialysis, he has to a sk his renal doctor to be sent to a place where they can have a more permanent access, he understood. Description Of Procedure: The patient was brought to the operating room and placed in supine positio n. Anesthesia was done without complication. Right neck and chest were prepped and draped in the [facility] sterile fashion. A time-out was called. Patient was placed in reverse Trendelenburg position. Ultrasound of the neck was done, localized in the internal jugular vein, found to be compressible. U sing that technique, we proceeded to insert an 18-gauge needle in the right internal jugular vein pas t the guidewire and the guidewire was guided into the superior vena cava using fluoroscopy. The need le was removed. A small incision was made in that area. We made a small incision also in the right upper chest and tunneled a HemoSplit hemodialysis catheter to be from that incision to the incision i n the neck. Then, after that, under fluoroscopy, serial dilators were done and sheath catheter was p laced in that area. The catheter was placed through and sheath was peeled off under fluoroscopy. Ca theter seems to be in place. Excellent backflow and inflow. Flushed with heparinized solution. The 3-0 chromic was used to close the subcutaneous tissue. The patient was brought back to normal posit ion from Trendelenburg. The catheter was secured in place with nylon. Patient tolerated the procedu re well. The patient was on his way to Recovery in stable condition, a chest x-ray will be ordered s tat. SUKHI/LIZA Voice ID: [id number] Report ID: [id number]
--- NOTE | 2022-08-19 03:11 | P.PN ---
Subjective Date of Service: 08/18/22 Chart has been reviewed. Patient is a [age] year old gentleman to the hospital with small-bowel obstruction and severe acidosis with acute renal failure. Patient was started on hemodialysis. Patient was taken to the operating room as well and had small-bowel resection with anastomosis. Patient started improving. We kept him NPO. We may start on diet soon. Clinically doing better. Review of Systems 10-point ROS is otherwise unremarkable Physical Examination - Vital Signs Temperature: 98.3 F Blood Pressure: 139/72 Pulse: 91 Respirations: 16 Pulse Ox (%): 94 - Physical Exam General: Alert, In no apparent distress, Oriented x3 HEENT: Atraumatic, PERRLA, EOMI Neck: Supple, JVD not distended Respiratory: Clear to auscultation bilaterally, Normal air movement Cardiovascular: Regular rate/rhythm, Normal S1 S2 Gastrointestinal: Normal bowel sounds, No tenderness Musculoskeletal: No tenderness Integumentary: No rashes Neurological: Normal speech, Normal tone, Normal affect Lymphatics: No axilla or inguinal lymphadenopathy - Studies Medications List Reviewed: Yes Assessment & Plan - Problems (Diagnosis) (1) ESRD (end stage renal disease) Current Visit: Yes Status: Acute (2) Incarcerated hernia Current Visit: Yes Status: Acute (3) S/P hernia repair Current Visit: Yes Status: Acute - Plan Plan: 1. Continue with hemodialysis per nephrology 2. NPO at this time. May clamp NG tube and start on a diet 3. monitor electrolytes closely 4. continue with antibiotic therapy 5. start physical therapy 6. Pain control 7. GI/DVT prophylaxis Discharge Plan: Home Plan to discharge in: Greater than 2 days - Advance Directives Does patient have a Living Will: No Does patient have a Durable POA for Healthcare: No - Code Status/Comfort Care Code Status Assessed: Yes Code Status: Full Code Physician Review: Patient Assessed, Agree with Above Assessment and Plan Critical Care: No Time Spent Managing PTS Care (In Minutes): 35
[2022-08-19 04:16] LABS: Albumin 1.9 g/dL (3.4-5.0); Bilirubin Total 0.9 mg/dL (0.2-1.0); Potassium 3.7 mmol/L (3.5-5.1); Protein, Total 5.3 g/dL (6.4-8.2); Uric Acid 8.5 mg/dL (3.5-7.2)
[2022-08-19] MEDS: D5 0.9 NS 1,000 ML IV SCH ×4 (06:07→22:22)
[2022-08-19] MEDS: PIPER TAZO 3.375 GM in NA CHLORIDE 0.9% 100 ML IV SCH ×2 (08:50→22:23)
[2022-08-19] MEDS: MUPIROCIN 2% OINT 22GM TUBE TOP SCH ×2 (08:51→21:00)
[2022-08-19] MEDS: PANTOPRAZOLE 40 MG INJ IVP SCH ×2 (08:51→22:23)
--- NOTE | 2022-08-19 20:53 | P.PN ---
Date of Service: 08/19/22 Vital Signs Temp Pulse Resp BP Pulse Ox 97.9 F 83 18 144/67 H 97 08/19/22 16:00 08/19/22 16:00 08/19/22 16:00 08/19/22 16:00 08/19/22 16:00 Medications Heparin Sodium (Porcine) (Heparin 1,000 Unit/Ml Vial) 4,000 unit IV EVERY HD PRN PRN Reason: DIALYSIS CATHETRER CARE Last Admin: 08/18/22 22:18 Dose: 4,000 unit Piperacillin Sod/Tazobactam (Sod 3.375 gm/ Sodium Chloride) 100 mls @ 25 mls/hr IV Q12HR ANITHA; Protocol Last Admin: 08/19/22 08:50 Dose: 100 mls Dextrose (Dextrose 10% Water Iv Soln.) 125 mls @ 0 mls/hr IV PRN PRN; Protocol PRN Reason: HYPOGLYCEMIA Last Admin: 08/17/22 15:22 Dose: 125 mls Dextrose/Sodium Chloride (D5w Ns 1-Liter Bag) 1,000 mls @ 125 mls/hr IV .Q8H ANITHA Last Admin: 08/19/22 12:56 Dose: 1,000 mls Albumin Human (Albumin 25%) 50 mls @ 100 mls/hr IV EVERY HD ANITHA Mannitol (Mannitol 25% 12.5 Gm/50 Ml Vial) 12.5 gm IV EVERY HD PRN; Protocol PRN Reason: Titrate to SBP (MUST DEFINE) Morphine Sulfate (Morphine 4 Mg/Ml Syr) 4 mg IV Q2H PRN PRN Reason: Pain scale 8-10 (Severe) Last Admin: 08/18/22 23:35 Dose: 4 mg Mupirocin (Mupirocin 2% Oint 22gm Tube) 1 appl TOP BID ANITHA Stop: 08/20/22 09:01 Last Admin: 08/19/22 08:51 Dose: 1 applic Ondansetron HCl (Ondansetron 4 Mg/2 Ml Vial) 4 mg IV Q6HP PRN PRN Reason: NAUSEA / VOMITING Last Admin: 08/18/22 20:30 Dose: 4 mg Pantoprazole Sodium (Pantoprazole 40 Mg Inj) 40 mg IVP Q12HR ANITHA; Protocol Last Admin: 08/19/22 08:51 Dose: 40 mg Sodium Chloride (Flush Normal Saline 10 Ml) 10 ml IV BID ANITHA Last Admin: 08/19/22 08:51 Dose: 10 ml Sodium Chloride (Sodium Chloride 0.9% 10ml Inj) 10 ml IV UD PRN PRN Reason: Diluant Microbiology Results 08/14/22 11:53 Blood - Blood Aerobic Blood Culture - Final No growth in 5 days. 08/14/22 11:53 Blood - Blood Anaerobic Blood Culture - Final No growth in 5 days. 08/14/22 11:41 Blood - Blood Aerobic Blood Culture - Final No growth in 5 days. 08/14/22 11:41 Blood - Blood Anaerobic Blood Culture - Final No growth in 5 days. Assessment/ Plan: Nephrology No dyspnea No chest pain No acute events overnight Vitals, medications, blood work and imaging reviewed in the chart. General: Oriented x3, Cooperative HEENT: Atraumatic. NGT Neck: Supple Respiratory: Normal air movement Cardiovascular: No edema, Regular rate/rhythm Gastrointestinal: Tenderness Musculoskeletal: No clubbing, No contractures. Right wrist tender Integumentary: No rashes, No cyanosis Neurological: Normal speech Laboratory Data (last 24 hrs) 08/14/22 11:33: Sodium Cancelled, Potassium Cancelled, BUN Cancelled, Creatinine Cancelled, Glucose Cancelled, Total Bilirubin Cancelled, AST Cancelled, ALT Cancelled, Alkaline Phosphatase Cancelled 08/14/22 11:33: PT 10.8, INR 0.98, APTT 26.2 08/14/22 10:23: Sodium 103 L*, Potassium 5.6 H*, BUN 253 H, Creatinine 7.79 H*, Glucose 132 H, Total Bilirubin 0.5, AST 34, ALT 28, Alkaline Phosphatase 107, Lipase 596 H 08/14/22 10:23: WBC 26.70 H*, Hgb 17.2, Hct 48.3, Plt Count 439 H Imagings Data: EXAM DESCRIPTION: CT - Abdomen Pelvis Wo Contrast - 08/14/2022 11:25 am CLINICAL HISTORY: abdominal pain COMPARISON: No comparisons TECHNIQUE: Axial [address] imaging of the abdomen and pelvis was performed without IV contrast. No IV contrast was given because of allergy, abnormal renal function, patient refusal or physician request. No oral contrast administered. All CT scans are performed using dose optimization technique as appropriate and may include automated exposure control or mA/KV adjustment according to patient size. FINDINGS: Minimal interstitial and patchy alveolar opacities are present in the left lung base. Right lung base is clear. No pleural effusions. No cardiomegaly or pericardial effusion. The liver, spleen and pancreas show no suspicious findings on non-contrast imaging. Gallbladder and biliary tree are also without suspicious finding. No hydronephrosis or suspicious renal mass. No significant adrenal finding. Isodense renal masses and pyelonephritis cannot be excluded in the absence of IV contrast. Mostly contracted urinary bladder shows no suspicious finding. Stomach is filled with fluid and air. No gastric wall thickening or mass. There is mild dilatation of the duodenum. Multiple dilated loops of jejunum are noted up to 4.4 cm in diameter. Dilation of small bowel continues to the jejunum and ileum junction. There is an 8 centimeter diameter left supraumbilical hernia. The neck is 3 cm in diameter. The hernia contains a loop of small bowel. Distal loops of small bowel are decompressed. Colon is decompressed. Herniated bowel loop shows mildly edematous martel. The herniated fat is edematous. No free air or pneumatosis. No abnormal free fluid collection. No mass or bulky lymphadenopathy. No suspicious bony findings. IMPRESSION: Small bowel obstruction secondary to a herniated loop of small bowel into an 8 centimeter diameter left supraumbilical hernia. Small bowel distal to the herniation decompressed along with decompressed colon. Herniated loop of small bowel at the jejunum and ileum junction shows mild edema. There is congestion and edema of the herniated fat. There are patchy interstitial and alveolar opacities in the left lung base which could be a concurrent minimal infiltrate. Conclusions/Impression: LYN in the setting of hypovolemia and complicated by ATN suspicious for ESRD -No NSAIDs -First HD 08-18-22. -Continue daily HD at this time -Recommend HD placement due to possible ESRD Hypovolemic Hyponatremia of unclear duration -Monitor levels Hyperkalemia, resolved Hypocalcemia HyperPO4 -NPO -Replete calcium prn Hypoalbuminemia in the setting of moderate malnutrition Debility/ Weakness -NPO -Advance nutrition as indicated -Consider PT as tolerated Right wrist pain suspicious for gout -Pain control prn Incarcerated Umbilical Hernia sp bowel resection -Continue abx -Follow up with surgery
[2022-08-20 00:14] VITALS: O2SAT 98
[2022-08-20 04:29] LABS: Phosphorus 3.6 mg/dL (2.5-4.9); Potassium 3.7 mmol/L (3.5-5.1)
[2022-08-20] MEDS: D5 0.9 NS 1,000 ML IV SCH ×2 (08:13→09:27)
[2022-08-20] MEDS: PIPER TAZO 3.375 GM in NA CHLORIDE 0.9% 100 ML IV SCH ×2 (08:14→22:57)
[2022-08-20] MEDS: PANTOPRAZOLE 40 MG INJ IVP SCH ×2 (08:14→22:57)
[2022-08-20] MEDS: MUPIROCIN 2% OINT 22GM TUBE TOP SCH (09:00)
--- NOTE | 2022-08-20 10:21 | RAD REPORT ---
EXAM DESCRIPTION: US - UPPER EXTREMITY VENOUS UNILATE - 08/20/2022 12:21 am CLINICAL HISTORY: Rule Out DVT. COMPARISON: US right arm vein 08/17/2022 report without images. TECHNIQUE: Grayscale, color Doppler, duplex Doppler, spectral Doppler images and analysis with compr ession and augmentation of right upper extremity veins. FINDINGS: Right subclavian, axillary, brachial, basilic, cephalic, radial, and ulnar veins unremarka ble without evidence of clot. Right internal jugular vein difficult to visualize due to bandage in right neck. IMPRESSION: No sonographic evidence of right upper extremity vein thrombosis. Electronically signed by: Romero Fernandez MD 08/20/2022 12:41 AM [employer]ING MACHINE DRAWER IN Due to temporary technical issues with the PACS/Fluency reporting system, reports are being signed by the in house radiologists without review as a courtesy to insure prompt reporting. The interpreting radiologist is fully responsible for the content of the report.
--- NOTE | 2022-08-20 10:50 | P.PN ---
Nephrology note (S) Pt denies any acute complaints, tolerating HD Vitals, medications, blood work and imaging reviewed in the chart. General: Oriented x3, Cooperative HEENT: Atraumatic. Off NC, NGT removed Neck: Supple, Rt IJ TDC Respiratory: Normal air movement Cardiovascular: No edema, Regular rate/rhythm Gastrointestinal: Soft, ND Musculoskeletal: No clubbing, No contractures. Integumentary: No rashes, No cyanosis Neurological: Normal speech Laboratory Data (last 24 hrs) Reviewed Conclusions/Impression: Dialysis dependent renal failure with severe azotemia -Tolerating initiation of HD, performing gentle, gradual metab clearance. Additional HD today. Remains NPO but NGT out (no further gasrtric losses), will lower rate of maintenance IVF to 30 ml/min, will monitor fluid status on HD Hyperkalemia, resolved Hypocalcemia HyperPO4 -Addressing with dialysis for now Incarcerated Umbilical Hernia sp bowel resection -Management per surgery Meet Rodriguez MD, JAKE
[2022-08-20] MEDS ORDERED: METOPROLOL TARTRATE 5 MG/5 ML INJ IV STA (16:24)
[2022-08-21] MEDS ORDERED: PIPERACIL/TAZO 3.375 GM VIAL IV ONE (08:00)
[2022-08-21] MEDS ORDERED: NA CHLORIDE 0.9% 100 ML ONE (08:04)
[2022-08-21] MEDS: PIPER TAZO 3.375 GM in NA CHLORIDE 0.9% 100 ML IV SCH ×2 (08:20→20:42)
[2022-08-21] MEDS: PANTOPRAZOLE 40 MG INJ IVP SCH ×2 (08:20→20:43)
--- NOTE | 2022-08-21 11:22 | P.PN ---
Date of Service: 08/21/22 Vital Signs Temp Pulse Resp BP Pulse Ox 98.5 F 94 H 14 141/88 H 96 08/21/22 08:00 08/21/22 08:00 08/21/22 08:00 08/21/22 08:00 08/21/22 08:00 Medications Heparin Sodium (Porcine) (Heparin 1,000 Unit/Ml Vial) 4,000 unit IV EVERY HD PRN PRN Reason: DIALYSIS CATHETRER CARE Last Admin: 08/20/22 13:02 Dose: 4,000 unit Piperacillin Sod/Tazobactam (Sod 3.375 gm/ Sodium Chloride) 100 mls @ 25 mls/hr IV Q12HR ANITHA; Protocol Last Admin: 08/21/22 08:20 Dose: 100 mls Dextrose (Dextrose 10% Water Iv Soln.) 125 mls @ 0 mls/hr IV PRN PRN; Protocol PRN Reason: HYPOGLYCEMIA Last Admin: 08/17/22 15:22 Dose: 125 mls Albumin Human (Albumin 25%) 50 mls @ 100 mls/hr IV EVERY HD ANITHA Last Admin: 08/19/22 19:30 Dose: 50 mls Dextrose/Sodium Chloride (D5w Ns 1-Liter Bag) 1,000 mls @ 30 mls/hr IV .[id number] ANITHA Last Admin: 08/20/22 09:27 Dose: 1,000 mls Mannitol (Mannitol 25% 12.5 Gm/50 Ml Vial) 12.5 gm IV EVERY HD PRN; Protocol PRN Reason: Titrate to SBP (MUST DEFINE) Last Admin: 08/19/22 20:30 Dose: 12.5 gm Ondansetron HCl (Ondansetron 4 Mg/2 Ml Vial) 4 mg IV Q6HP PRN PRN Reason: NAUSEA / VOMITING Last Admin: 08/18/22 20:30 Dose: 4 mg Pantoprazole Sodium (Pantoprazole 40 Mg Inj) 40 mg IVP Q12HR ANITHA; Protocol Last Admin: 08/21/22 08:20 Dose: 40 mg Sodium Chloride (Flush Normal Saline 10 Ml) 10 ml IV BID ANITHA Last Admin: 08/21/22 08:20 Dose: 10 ml Sodium Chloride (Sodium Chloride 0.9% 10ml Inj) 10 ml IV UD PRN PRN Reason: Diluant Microbiology Results 08/14/22 11:53 Blood - Blood Aerobic Blood Culture - Final No growth in 5 days. 08/14/22 11:53 Blood - Blood Anaerobic Blood Culture - Final No growth in 5 days. 08/14/22 11:41 Blood - Blood Aerobic Blood Culture - Final No growth in 5 days. 08/14/22 11:41 Blood - Blood Anaerobic Blood Culture - Final No growth in 5 days. Assessment/ Plan: Nephrology No dyspnea No chest pain Ambulated today with a walker +BM Requests to have the seth removed in the morning No acute events overnight Vitals, medications, blood work and imaging reviewed in the chart. General: Oriented x3, Cooperative HEENT: Atraumatic. Neck: Supple Respiratory: Normal air movement Cardiovascular: No edema, Regular rate/rhythm Gastrointestinal: Tenderness Musculoskeletal: No clubbing, No contractures. Right wrist tender Integumentary: RUE rash, No cyanosis Neurological: Normal speech Laboratory Data (last 24 hrs) 08/14/22 11:33: Sodium Cancelled, Potassium Cancelled, BUN Cancelled, Creatinine Cancelled, Glucose Cancelled, Total Bilirubin Cancelled, AST Cancelled, ALT Cancelled, Alkaline Phosphatase Cancelled 08/14/22 11:33: PT 10.8, INR 0.98, APTT 26.2 08/14/22 10:23: Sodium 103 L*, Potassium 5.6 H*, BUN 253 H, Creatinine 7.79 H*, Glucose 132 H, Total Bilirubin 0.5, AST 34, ALT 28, Alkaline Phosphatase 107, Lipase 596 H 08/14/22 10:23: WBC 26.70 H*, Hgb 17.2, Hct 48.3, Plt Count 439 H Imagings Data: EXAM DESCRIPTION: CT - Abdomen Pelvis Wo Contrast - 08/14/2022 11:25 am CLINICAL HISTORY: abdominal pain COMPARISON: No comparisons TECHNIQUE: Axial [address] imaging of the abdomen and pelvis was performed without IV contrast. No IV contrast was given because of allergy, abnormal renal function, patient refusal or physician request. No oral contrast administered. All CT scans are performed using dose optimization technique as appropriate and may include automated exposure control or mA/KV adjustment according to patient size. FINDINGS: Minimal interstitial and patchy alveolar opacities are present in the left lung base. Right lung base is clear. No pleural effusions. No cardiomegaly or pericardial effusion. The liver, spleen and pancreas show no suspicious findings on non-contrast imaging. Gallbladder and biliary tree are also without suspicious finding. No hydronephrosis or suspicious renal mass. No significant adrenal finding. Isodense renal masses and pyelonephritis cannot be excluded in the absence of IV contrast. Mostly contracted urinary bladder shows no suspicious finding. Stomach is filled with fluid and air. No gastric wall thickening or mass. There is mild dilatation of the duodenum. Multiple dilated loops of jejunum are noted up to 4.4 cm in diameter. Dilation of small bowel continues to the jejunum and ileum junction. There is an 8 centimeter diameter left supraumbilical hernia. The neck is 3 cm in diameter. The hernia contains a loop of small bowel. Distal loops of small bowel are decompressed. Colon is decompressed. Herniated bowel loop shows mildly edematous martel. The herniated fat is edematous. No free air or pneumatosis. No abnormal free fluid collection. No mass or bulky lymphadenopathy. No suspicious bony findings. IMPRESSION: Small bowel obstruction secondary to a herniated loop of small bowel into an 8 centimeter diameter left supraumbilical hernia. Small bowel distal to the herniation decompressed along with decompressed colon. Herniated loop of small bowel at the jejunum and ileum junction shows mild edema. There is congestion and edema of the herniated fat. There are patchy interstitial and alveolar opacities in the left lung base which could be a concurrent minimal infiltrate. Conclusions/Impression: LYN in the setting of hypovolemia and complicated by ATN suspicious for ESRD -No NSAIDs -First HD 08-18-22. -Next HD tomorrow -Recommend HD placement due to ESRD -Remove the seth tomorrow morning Hypovolemic Hyponatremia, resolved Hyperkalemia, resolved Hypocalcemia HyperPO4 -Start Ergo qWk Hypoalbuminemia in the setting of moderate malnutrition Debility/ Weakness -Advance nutrition as indicated -Consider protein shakes -Consider PT as tolerated Right wrist pain suspicious for gout -Pain control prn Incarcerated Umbilical Hernia sp bowel resection -Continue abx -Follow up with surgery
[2022-08-21] MEDS ORDERED: DRISDOL (VITAMIN D=ERGOCALCIFEROL) 50000 UNIT CAP PO SCH (12:00)
[2022-08-21 18:14] LABS: Absolute Lymphocytes (CBC) 0.7 K/uL (0.7-4.9); Hematocrit 27.2 % (39.6-49.0); Lymphocytes % 7.1 % (15.3-44.8); MCV 87.9 fL (80-100); MPV 7.9 fL (7.6-11.3); RBC Red Blood Cell Count 3.09 M/uL (4.33-5.43)
[2022-08-21 18:28] LABS: Potassium 3.3 mmol/L (3.5-5.1)
[2022-08-21] MEDS: D5 0.9 NS 1,000 ML IV SCH (20:43)
[2022-08-22 03:49] LABS: Absolute Lymphocytes (CBC) 0.7 K/uL (0.7-4.9); Hematocrit 25.4 % (39.6-49.0); MCV 87.2 fL (80-100); MPV 7.8 fL (7.6-11.3); RBC Red Blood Cell Count 2.91 M/uL (4.33-5.43)
[2022-08-22 04:09] LABS: Bilirubin Total 0.7 mg/dL (0.2-1.0); Magnesium 1.6 mg/dL (1.6-2.4); Potassium 3.3 mmol/L (3.5-5.1); Protein, Total 5.1 g/dL (6.4-8.2)
[2022-08-22] MEDS: PIPER TAZO 3.375 GM in NA CHLORIDE 0.9% 100 ML IV SCH ×2 (09:10→21:57)
[2022-08-22] MEDS: PANTOPRAZOLE 40 MG INJ IVP SCH ×2 (09:13→21:59)
--- NOTE | 2022-08-22 11:44 | P.PN ---
Nephrology note (S) Pt denies any acute complaints, seth removed, no abd pain, no dyspnea, has had BM Vitals, medications, blood work and imaging reviewed in the chart. General: Oriented x3, Cooperative HEENT: Atraumatic. Off NC, NGT removed Neck: Supple, Rt IJ TDC Respiratory: Normal air movement Cardiovascular: No edema, Regular rate/rhythm Gastrointestinal: Soft, ND, seth removed Musculoskeletal: No clubbing, No contractures. Integumentary: No rashes, No cyanosis Neurological: Normal speech Laboratory Data (last 24 hrs) Reviewed Conclusions/Impression: Renal failure with severe azotemia on admission, required HD in that setting. -Cr level lower today off HD yesterday, last HD Thu. Recommend holding HD today and trending Cr levels, UOP acceptable. Maintain TDC. Seth removed Hyperkalemia, resolved now with mild hypokalemia Hypocalcemia HyperPO4 -Improved Incarcerated Umbilical Hernia sp bowel resection -Management per surgery, progressing well Meet Rodriguez MD, JAKE
[2022-08-22] MEDS ORDERED: BENZONATATE 100 MG CAP PO PRN (15:19)
[2022-08-22] MEDS: ENSURE MAX PROTEIN 330 ML LIQUID PO SCH (21:00)
--- NOTE | 2022-08-23 00:36 | P.PN ---
Date of Service: 08/19/22 Subjective Patient continues to improve. Go ahead and start him on a diet. urine output is increasing. Continue with hemodialysis per Nephrology. At this time patient is being considered as end-stage renal disease. Continue monitoring renal function. Review of Systems 10-point ROS is otherwise unremarkable Physical Examination - Vital Signs Reviewed - Physical Exam General: Alert, In no apparent distress, Oriented x3 Respiratory: Clear to auscultation bilaterally, Normal air movement Cardiovascular: Regular rate/rhythm, Normal S1 S2 Gastrointestinal: Normal bowel sounds, No tenderness Neurological: Normal speech, Normal tone, Normal affect Assessment & Plan - Problems (Diagnosis) (1) ESRD (end stage renal disease) Current Visit: Yes Status: Acute (2) Incarcerated hernia Current Visit: Yes Status: Acute (3) S/P hernia repair Current Visit: Yes Status: Acute - Plan Plan: 1. Continue with hemodialysis per nephrology 2. DC the NG tube and started on a clear liquid diet 3. monitor electrolytes closely 4. continue with antibiotic therapy 5. start physical therapy 6. Pain control 7. GI/DVT prophylaxis
--- NOTE | 2022-08-23 00:37 | P.PN ---
Date of Service: 08/20/22 Subjective Patient continues to improve. Patient denies any new complaints. Hemodialysis today. Anticipate discharge once hemodialysis is arranged as an outpatient. Review of Systems 10-point ROS is otherwise unremarkable Physical Examination - Vital Signs Reviewed - Physical Exam General: Alert, In no apparent distress, Oriented x3 Respiratory: Clear to auscultation bilaterally, Normal air movement Cardiovascular: Regular rate/rhythm, Normal S1 S2 Gastrointestinal: Normal bowel sounds, No tenderness Neurological: Normal speech, Normal tone, Normal affect Assessment & Plan - Problems (Diagnosis) (1) ESRD (end stage renal disease) Current Visit: Yes Status: Acute (2) Incarcerated hernia Current Visit: Yes Status: Acute (3) S/P hernia repair Current Visit: Yes Status: Acute - Plan Continue with plan of care as mentioned below: 1. Continue with hemodialysis per nephrology 2. DC the NG tube and started on a clear liquid diet 3. monitor electrolytes closely 4. continue with antibiotic therapy 5. start physical therapy 6. Pain control 7. GI/DVT prophylaxis
--- NOTE | 2022-08-23 00:38 | P.PN ---
Date of Service: 08/21/22 Subjective Spoke with General surgery and will advanced to a full liquid diet. Continuing to improve. Continue with arranged for hemodialysis as an outpatient. Review of Systems 10-point ROS is otherwise unremarkable Physical Examination - Vital Signs Reviewed - Physical Exam General: Alert, In no apparent distress, Oriented x3 Respiratory: Clear to auscultation bilaterally, Normal air movement Cardiovascular: Regular rate/rhythm, Normal S1 S2 Gastrointestinal: Normal bowel sounds, No tenderness Neurological: Normal speech, Normal tone, Normal affect Assessment & Plan - Problems (Diagnosis) (1) ESRD (end stage renal disease) Current Visit: Yes Status: Acute (2) Incarcerated hernia status post small-bowel resection Current Visit: Yes Status: Acute (3) S/P hernia repair Current Visit: Yes Status: Acute - Plan Continue with plan of care as mentioned below: 1. Continue with hemodialysis per nephrology; Arrange for outpatient hemodialysis 2. DC the NG tube and started on a clear liquid diet 3. monitor electrolytes closely 4. continue with antibiotic therapy 5. continue with physical therapy 6. Pain control 7. GI/DVT prophylaxis
--- NOTE | 2022-08-23 00:39 | P.PN ---
Date of Service: 08/22/22 Subjective patient with adequate urine output and renal function is stable. Advance diet to GI soft. Patient is ambulating and doing much better. If renal function is improving and urine output is adequate may be able to hold off of hemodialysis. Will discuss with Nephrology. Review of Systems 10-point ROS is otherwise unremarkable Physical Examination - Vital Signs Reviewed - Physical Exam General: Alert, In no apparent distress, Oriented x3 Respiratory: Clear to auscultation bilaterally, Normal air movement Cardiovascular: Regular rate/rhythm, Normal S1 S2 Gastrointestinal: Normal bowel sounds, No tenderness Neurological: Normal speech, Normal tone, Normal affect Assessment & Plan - Problems (Diagnosis) (1) ESRD (end stage renal disease) Current Visit: Yes Status: Acute (2) Incarcerated hernia status post small-bowel resection Current Visit: Yes Status: Acute (3) S/P hernia repair Current Visit: Yes Status: Acute - Plan Continue with plan of care as mentioned below: 1. Urine output and renal function is stable. If patient maintains adequate urine output and improvement of renal function without hemodialysis that we may be able to hold off. 2. DC the NG tube and started on a clear liquid diet 3. monitor electrolytes closely 4. continue with antibiotic therapy 5. continue with physical therapy 6. Pain control 7. GI/DVT prophylaxis
[2022-08-23 05:26] LABS: Albumin 2.1 g/dL (3.4-5.0); Phosphorus 2.5 mg/dL (2.5-4.9); Potassium 3.2 mmol/L (3.5-5.1)
[2022-08-23 08:00] VITALS: BMI 24.2
[2022-08-23] MEDS ORDERED: POTASSIUM 25 MEQ EFFERV TAB PO ONE (08:28)
[2022-08-23] MEDS: ENSURE MAX PROTEIN 330 ML LIQUID PO SCH ×2 (09:00→20:43)
[2022-08-23] MEDS: PANTOPRAZOLE 40 MG INJ IVP SCH ×2 (10:21→20:10)
[2022-08-23] MEDS: PIPER TAZO 3.375 GM in NA CHLORIDE 0.9% 100 ML IV SCH ×2 (10:21→20:10)
--- NOTE | 2022-08-23 17:01 | PN ---
Date of Progress Note: 08/23/2022 Subjective: The patient was seen and examined at bedside. He is doing well. Denies any complaints. Objective: Vital Signs: Have been reviewed and are stable. General: He appears in no acute distress. Lungs: Clear. Abdomen: Soft. Extremities: Showed no evidence of edema. Laboratory Data: Showing creatinine improving to 2.3 and potassium of 3.2. CBC showing stable hemog lobin, hematocrit, and platelet count. Current Medications: Have been reviewed in detail. Impression: 1.Acute renal failure secondary to acute tubular necrosis requiring dialysis. The patient has not h ad dialysis in the past several days. His creatinine continues to trend down. Last hemodialysis was on Thursday. We will continue to hold dialysis and monitor. 2.Hypokalemia has been repleted. 3.Hypocalcemia and hyperphosphatemia, improving. 4.Incarcerated umbilical hernia, status post bowel resection. Management per surgery. He is doing very well. Plan: Overall, patient is doing well. Continue to monitor renal function over the weekend. If it i mproves, we will arrange for dialysis catheter removal and monitor him. VV/MODL Voice ID: [id number] Report ID: [id number]
[2022-08-24 05:09] LABS: Albumin 2.1 g/dL (3.4-5.0); Phosphorus 2.3 mg/dL (2.5-4.9); Potassium 3.7 mmol/L (3.5-5.1)
[2022-08-24] MEDS: PANTOPRAZOLE 40 MG INJ IVP SCH (08:42)
[2022-08-24] MEDS: PIPER TAZO 3.375 GM in NA CHLORIDE 0.9% 100 ML IV SCH (08:42)
[2022-08-24] MEDS: ENSURE MAX PROTEIN 330 ML LIQUID PO SCH (08:43)
--- NOTE | 2022-08-24 12:00 | PN ---
Date of Progress Note: 08/24/2022 Subjective: Status post bowel resection and anastomosis, doing great, tolerating diet. I am glad th at his numbers medically are improving too. There is plan to discharge him home. So from the surgic al standpoint, we have no objection. He is tolerating diet, ambulating, had a bowel movement. Objective: Chest: Clear. Abdomen: Soft and depressible. Neck: Supple. Catheter intact. Plan: May be discharged whenever he is ready from medical standpoint. Follow up in my office in a letty trevizo from now. No heavy lifting. HM/MODL Voice ID: [id number] Report ID: [id number]
[2022-08-24 13:04] VITALS: BP 141/84; TEMP 98.7
--- NOTE | 2022-08-26 17:53 | EKG ---
Test Date: 2022-08-14 Test Time: 12:22:11 Airplane Tester: YURI MEASUREMENT RESULTS: Intervals: Rate: 69 NJ: 162 QRSD: 108 QT: 428 QTc: 458 Surveyor: P: 74 NJ: 162 QRS: 82 T: 79 INTERPRETIVE STATEMENTS: Normal sinus rhythm Incomplete right bundle branch block Borderline ECG No previous ECG available for comparison Electronically Signed On 08-26-22 17:31:07 POSTDOCTORAL FELLOW by Edinson Woods
== END 2022-08-24 14:08 | disposition home or self-care (01) | DRG 329 ==
LOC: ER 10:03 → ERHOLD 12:20 → 3RD-ICU 14:49 → 4TH 08-18 23:37
PROVIDERS: ADMIT Internal Medicine; ATTEND Hospitalist
PROC: 0WQF0ZZ Repair Abdominal Wall, Open Approach (ICD-10-PCS; 2022-08-14)
PROC: 5A1D70Z Performance of Urinary Filtration, Intermittent, Less than 6 Hours Per Day (ICD-10-PCS; 2022-08-14)
PROC: 0DT80ZZ Resection of Small Intestine, Open Approach (ICD-10-PCS; principal; 2022-08-14 14:00)
PROC: 02HV33Z Insertion of Infusion Device into Superior Vena Cava, Percutaneous Approach (ICD-10-PCS; 2022-08-18)
PROC: 5A1D70Z Performance of Urinary Filtration, Intermittent, Less than 6 Hours Per Day (ICD-10-PCS; 2022-08-18)
PROC: 5A1D70Z Performance of Urinary Filtration, Intermittent, Less than 6 Hours Per Day (ICD-10-PCS; 2022-08-20)
DX: K43.6 Other and unspecified ventral hernia with obstruction, without gangrene (principal); K65.9 Peritonitis, unspecified; N17.0 Acute kidney failure with tubular necrosis; R57.1 Hypovolemic shock; N18.6 End stage renal disease; N17.9 Acute kidney failure, unspecified; E87.1 Hypo-osmolality and hyponatremia; E87.20 Acidosis, unspecified; E44.0 Moderate protein-calorie malnutrition; R55 Syncope and collapse; E87.8 Other disorders of electrolyte and fluid balance, not elsewhere classified; E87.5 Hyperkalemia; E83.51 Hypocalcemia; E88.09 Other disorders of plasma-protein metabolism, not elsewhere classified; E83.39 Other disorders of phosphorus metabolism; R53.81 Other malaise; R31.29 Other microscopic hematuria; E05.90 Thyrotoxicosis, unspecified without thyrotoxic crisis or storm; M10.9 Gout, unspecified; Z68.24 Body mass index [BMI] 24.0-24.9, adult; Z99.2 Dependence on renal dialysis; Z20.822 Contact with and (suspected) exposure to COVID-19
CPT/HCPCS: 36415; 70450; 71045; 74018; 74176; 76000; 80048; 80053; 80061; 80069; 80076; 81001; 82435; 82570; 82947; 83605; 83690; 83735; 83930; 83935; 84100; 84132; 84300; 84439; 84443; 84550; 85025; 85610; 85730; 86038; 86160; 86704; 86706; 86803; 87040; 87086; 87088; 87340; 87811; 88307; 90935; 93005; 93971; 94010; 96374; 96375; 97110; 97116; 97161; 97530; 99284; A4216; C9113; G0257; J0330; J1100; J1644; J2001; J2150; J2250; J2405; J2543; J2597; J2704; J2710; J3010; J7030; J7040; J7042; J7120; P9047

== ENCOUNTER 2022-09-08 09:26 | Day surgery (SDC) | payer SELFPAY ==
[2022-09-08] MEDS ORDERED: Ringers Lactate 1,000 ML IV ONE (09:40)
[2022-09-08] MEDS ORDERED: MIDAZOLAM HCL 2 MG/2 ML INJ ONE (10:16)
[2022-09-08] MEDS ORDERED: FENTANYL CITR 100 MCG/2 ML ONE (10:16)
[2022-09-08] MEDS ORDERED: propofoL 200 MG/20 ML VIAL IV ONE (10:16)
[2022-09-08] MEDS ORDERED: LIDOCAINE 2% MPF 5 ML VIAL ONE (10:16)
[2022-09-08] MEDS: CEFAZOLIN SODIUM 1 GM/VIAL ONE ×2 (11:44→11:45)
--- NOTE | 2022-09-08 12:07 | P.BOP ---
Preoperative diagnosis: renal insufficiency Postoperative diagnosis: same Primary procedure: Removal of cuffed Hemodialysis catheter right jugular vein Estimated blood loss: <5cc Specimen: catheter Findings: as above Anesthesia: General Complications: None Transferred to: Recovery Room Condition: Good
[2022-09-08 12:53] VITALS: O2SAT 100
[2022-09-08 12:54] VITALS: BP 118/86; TEMP 98.8
--- NOTE | 2022-09-08 18:53 | DS ---
Date of Discharge: 09/08/2022 Diagnosis: Renal insufficiency. Procedure: Removal of a cuffed-hemodialysis catheter. Disposition: Home. Activity: As tolerated. No heavy lifting. Plan: Followup in my office in 1 week. Call for appointment at [phone]. Keep area dry for 48 hour s, then may shower. SUKHI/LIZA Voice ID: [id number] Report ID: [id number]
--- NOTE | 2022-09-08 19:14 | OP ---
Date of Procedure: 09/08/2022 Surgeon: Sagar Alvarado MD Preoperative Diagnosis: Renal insuffiencey. Postoperative Diagnosis: Renal insuffiencey. Procedure: Removal of cuffed-hemodialysis catheter from the right jugular vein area. Estimated Blood Loss: Less than 5 cc. Specimen: Catheter intact. Anesthesia: Sedation plus local. 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 He came to the hospital, but he was able to overcome those, that required also a hemodialysis, but I am glad to say also that he is not receiving dialysis anymore, so he was sent by the renal doctor to our service to remove the hemodialysis catheter. The benefits, alternati ves, and risks of removal of a hemodialysis catheter fully explained, which include, but not limited to infection, bleeding, damage to adjacent structures, anesthesia complication, history of DVTs, MD, and even . He also understands this may not relieve any symptoms. He might need more than one surgical intervention. He understood, signed a consent. He also requested to see if we can remove h is pura while he is in OR, so he does not have to feel them being removed. We will do that. Procedure In Detail: The patient was brought to the operating room, placed in supine position. Anes thesia was done without complication. Right neck was prepped and draped in the usual sterile fashion . A time-out was called. Cuff was identified in the subcutaneous tissue with local anesthesia was a pplied. Incision was made in that area. The cuff was released from the subcutaneous tissue. While holding proximal and distal control of the catheter, the catheter was placed. The distal end was rem darius. Pressure was applied in the jugular region for about 12 minutes. Then, the other catheter was removed through the chest. The patient tolerated the procedure well. The subcutaneous tissue close d with 3-0 chromic. No bleeding. No hematomas. The patient was sent to recovery in stable conditio n. HM/MODL Voice ID: [id number] Report ID: [id number]
== END 2022-09-08 12:47 | disposition home or self-care (01) ==
LOC: OR 09:26
PROVIDERS: ATTEND Surgery
PROC: 0WPG03Z Removal of Infusion Device from Peritoneal Cavity, Open Approach (ICD-10-PCS; principal; 2022-09-08 11:30)
DX: Z49.02 Encounter for fitting and adjustment of peritoneal dialysis catheter (principal); Z87.448 Personal history of other diseases of urinary system
CPT/HCPCS: 88300; J0690; J2001; J2250; J2704; J3010; J7120